=== PATIENT | female | born 1940 | race Caucasian/White ===

== ENCOUNTER 2024-05-22 11:56 | Observation (INO) | payer MEDICARE ==
--- NOTE | 2024-05-22 12:08 | ERPHSYRPT ---
- History of Present Illness Time Seen by Provider: 05/22/24 12:07 Source: patient Exam Limitations: no limitations Physician History: The patient, with a history of cardiovascular disease and hypertension, presents with a three-day history of shortness of breath and weakness, particularly upon walking. They report feeling as though they might "hit the floor." This follows a recent COVID-19 infection approximately three weeks prior. In September, the patient underwent a cardiac procedure at [facility] in [place], where "clamps" were placed in the back of their heart due to an issue with the heart's opening and closing mechanism. The procedure, initially estimat ed to last an hour, extended to six and a half hours. Since then, the patient has not required hospitalization and denies any swelling. Daughter reports the procedure was mitral valve clipping. The patient also has a stent in the main artery of their neck. They occasionally experience chest pain and heart palpitations, described as the heart "skipping" and feeling like it's about to stop. Recently, they were diagnosed with atrial fibrillation (afib) and were prescribed Eliquis once daily. In addition to their cardiovascular conditions, the patient has a history of hypertension and high cholesterol, for which they have been taking medication for several months. They deny having diabetes. The patient also reports a sensation of weakness in their legs upon standing from a seated position. Timing/Duration: day(s) (3) Activities at Onset: activity Severity of Dyspnea-Max: severe Severity of Dyspnea-Current: severe Possible Cause: occasional episodes Modifying Factors: Improves With: rest. Worsens With: activity, exertion Associated Symptoms: intermittent, anxiety, cough, lightheadedness, weakness, dizziness, heart racing, No chest pain/discomfort, No edema, No wheezing, No ankle swelling, No calf pain, No leg swelling Allergies/Adverse Reactions: No Known Drug Allergies Allergy (Unverified 05/22/24 12:14) Home Medications: Unobtainable 05/22/24 [History] - Review of Systems All Other Systems: Reviewed and Negative - Past Medical History Neurological History: No Pertinent History ENT History: No Pertinent History Cardiac History: Coronary Artery Disease, High Cholesterol, Hypertension Respiratory History: No Pertinent History Endocrine Medical History: No Pertinent History Musculoskeletal History: Arthritis GI Medical History: No Pertinent History History: No Pertinent History Psycho-Social History: Anxiety Female Reproductive Disorders: No Pertinent History - Past Surgical History Past Surgical History: Yes Cardiac: Cardiac Catheterization, Cardiac Stent, Vascular Surgery, Other Gastrointestinal: Appendectomy, Cholecystectomy Female Surgical History: Hysterectomy Other Surgical History: valve clips - Nursing Vital Signs Nursing Vital Signs: Initial Vital Signs Pulse Rate 71 05/22/24 12:03 Respiratory Rate 22 05/22/24 12:03 Blood Pressure 138/79 05/22/24 12:03 O2 Sat by Pulse Oximetry 100 05/22/24 12:03 Pain Scale Pain Intensity 0 - Physical Exam General Appearance: moderate distress, anxiety, thin Eye Exam: eyes nml inspection Ears, Nose, Throat Exam: hearing grossly normal, normal ENT inspection Neck Exam: normal inspection, supple, full range of motion Respiratory Exam: normal breath sounds, lungs clear, airway intact, No chest tenderness, No respiratory distress Cardiovascular/Chest Exam: regular rate/rhythm, murmur (4/6 systolic murmur left sternal border), normal peripheral pulses, No edema Abdominal/Gastrointestinal Exam: soft, No tenderness, No distention, No mass, No guarding, No rebound Extremity Exam: No swelling, No cody's sign Neurologic Exam: alert, oriented x 3, cooperative Skin Exam: normal color, warm, dry SpO2 Interpretation: normal O2 Delivery: Room Air - Course Nursing assessment & vital signs reviewed: Yes EKG Interpreted by Me: RATE (74), Sinus Rhythm, NORMAL AXIS, NORMAL INTERVALS, NORMAL ST-T, Other (RSR prime V4, V5, V6) - CT Exams Chest CT Interpretation: Negative, Tele-radiologist Report, No PE Ordered Tests: Active Orders 24 hr Category Date Time Status Call Admit Doctor for Orders ON ADMISSION Care 05/22/24 16:53 Active Aircraft De Icer Installer STAT Care 05/22/24 12:14 Active Code Status Order ROUTINE Care 05/22/24 16:53 Active EKG-ER Only STAT Care 05/22/24 12:12 Active IV Insertion STAT Care 05/22/24 12:[address] in Observation ROUTINE Care 05/22/24 16:53 Active Telemetry q6h Care 05/22/24 16:54 Active CHEST WITH CONTRAST [CT] Stat Exams 05/22/24 13:14 Completed ECHO W/2D AND DOPPLER [US] Stat Exams 05/22/24 12:18 Taken BLOOD CULTURE Stat Lab 05/22/24 12:56 Received CBC W DIFF Stat Lab 05/22/24 12:22 Completed CMP Stat Lab 05/22/24 12:22 Completed D-DIMER QUANTITATIVE Stat Lab 05/22/24 12:22 Completed Lactic Acid Stat Lab 05/22/24 12:25 Completed MAGNESIUM Stat Lab 05/22/24 12:22 Completed NT PRO BNPII Stat Lab 05/22/24 12:22 Completed PROTIME WITH INR Stat Lab 05/22/24 12:22 Completed PTT Stat Lab 05/22/24 12:22 Completed TROPONIN Q4H Lab 05/22/24 12:22 Completed TROPONIN Q4H Lab 05/22/24 16:15 Completed TROPONIN Q4H Lab 05/22/24 20:15 Ordered UA W/RFX UR CULTURE Stat Lab 05/22/24 13:30 Completed VENOUS BLOOD GAS Stat Lab 05/22/24 12:25 Completed Medication Summary Discontinued Medications Generic Name Dose Route Start Last Admin Trade Name Freq PRN Reason Stop Dose Admin Ceftriaxone Sodium 1 gm in 100 mls @ 200 mls/hr 05/22/24 12:12 05/22/24 13:06 Rocephin 1 Gm / 100 Ml Nacl IV 05/22/24 12:41 Infused STAT ONE Infusion Azithromycin 500 mg in 250 mls @ 250 mls/hr 05/22/24 12:12 05/22/24 15:19 Zithromax 500 Mg/ 250 Ml Nacl Premix IV 05/22/24 13:11 Infused STAT STA Infusion Ceftriaxone Sodium Confirm 05/22/24 12:26 Rocephin 1 Gm / 100 Ml Nacl Administered 05/22/24 12:27 Dose 1 gm in 100 mls @ ud IV .STK-MED ONE Azithromycin Confirm 05/22/24 14:10 Zithromax 500 Mg/ 250 Ml Nacl Premix Administered 05/22/24 14:11 Dose 500 mg in 250 mls @ ud IV .STK-MED ONE Lab/Rad Data: Laboratory Result Diagrams 05/22/24 12:22 05/22/24 12:22 Laboratory Results 05/22/24 05/22/24 05/22/24 Range/Units 16:15 13:30 13:00 WBC (3.98-10.04) x10^3/uL RBC (3.93-5.22) x10^6/uL Hgb (11.2-15.7) g/dL Hct (34.1-44.9) % MCV (79.4-94.8) fL MCH (25.6-32.2) pg MCHC (32.2-35.5) g/dL RDW (11.7-14.4) % Plt Count (182-369) x10^3/uL MPV (9.4-12.3) fL Gran % (34.0-71.1) % Immature Gran % (Auto) (0.001-0.429) % Nucleat RBC Rel Count (0.00-0.2) % Eos # (Auto) (0.04-0.36) x10^3/uL Immature Gran # (Auto) (0.001-0.031) x10^3u/L Absolute Lymphs (auto) (1.18-3.74) x10^3/uL Absolute Monos (auto) (0.24-0.86) x10^3/uL Absolute Nucleated RBC (0.00-0.012) x10^3u/L Lymphocytes % (19.3-51.7) % Monocytes % (4.7-12.5) % Eosinophils % (0.7-5.8) % Basophils % (0.1-1.2) % Absolute Granulocytes (1.56-6.13) x10^3/uL Basophils # (0.01-0.08) x10^3/uL PT (9.4-12.5) SECONDS INR (0.8-3.0) APTT (25.1-36.5) SECONDS D-Dimer (0.0-0.50) mg/L pO2/FiO2 Ratio % VBG pH (7.32-7.42) VBG pCO2 at Pat Temp (42-55) mm/Hg VBG pO2 at Pat Temp (25-40) mm/Hg VBG HCO3 (22-28) meq/L VBG O2 Sat (Dev) (95-100) VBG Base Excess (-2.0-2.0) VBG Hemoglobin VBG Carboxyhemoglobin (0.0-6.9) % T HGB POC Potassium (3.5-5.1) Sodium (135-145) mmol/L Potassium (3.5-5.1) mmol/L Chloride (98-107) mmol/L Carbon Dioxide (22-30) mmol/L Anion Gap (5-15) MEQ/L BUN (7-17) mg/dL Creatinine (0.52-1.04) mg/dL Estimated GFR ML/MIN Glucose (74-106) mg/dL Lactic Acid (0.4-2.0) Calcium (8.4-10.2) mg/dL Magnesium (1.6-2.3) mg/dL Total Bilirubin (0.2-1.3) mg/dL AST (14-36) U/L ALT (0-35) U/L Alkaline Phosphatase (38-126) U/L Troponin I < 0.012 (0.000-0.033) ng/mL NT-Pro-B Natriuret Pep (<300) pg/mL Serum Total Protein (6.3-8.2) g/dL Albumin (3.5-5.0) g/dL Urine Color Yellow (Yellow) Urine Appearance Clear (Clear) Urine pH 7.5 (4.6-8.0) Ur Specific [place] 1.015 (1.005-1.030) Urine Protein Negative (Negative) Urine Glucose (UA) Negative (Negative) mg/dL Urine Ketones Negative (Negative) Urine Blood Small A (Negative) Urine Nitrite Negative (Negative) Urine Bilirubin Negative (Negative) Urine Urobilinogen 2.0 A (0.2) mg/dL Ur Leukocyte Esterase Large A (Negative) U Hyaline Cast (Auto) NONE SEEN (0-2) /LPF Urine Microscopic RBC 6-10 A (0-5) /HPF Urine Microscopic WBC 6-10 A (0-5) /HPF Ur Epithelial Cells Rare (None Seen) /HPF Urine Bacteria Rare A (None Seen) /HPF Urine Culture Reflexed NO (NO) Influenza Type A Ag NEGATIVE (NEGATIVE) Influenza Type B Ag NEGATIVE (NEGATIVE) RSV (PCR) NEGATIVE (NEGATIVE) SARS-CoV-2 (PCR) POSITIVE A (NEGATIVE) 05/22/24 05/22/24 05/22/24 Range/Units 12:25 12:25 12:22 WBC (3.98-10.04) x10^3/uL RBC (3.93-5.22) x10^6/uL Hgb (11.2-15.7) g/dL Hct (34.1-44.9) % MCV (79.4-94.8) fL MCH (25.6-32.2) pg MCHC (32.2-35.5) g/dL RDW (11.7-14.4) % Plt Count (182-369) x10^3/uL MPV (9.4-12.3) fL Gran % (34.0-71.1) % Immature Gran % (Auto) (0.001-0.429) % Nucleat RBC Rel Count (0.00-0.2) % Eos # (Auto) (0.04-0.36) x10^3/uL Immature Gran # (Auto) (0.001-0.031) x10^3u/L Absolute Lymphs (auto) (1.18-3.74) x10^3/uL Absolute Monos (auto) (0.24-0.86) x10^3/uL Absolute Nucleated RBC (0.00-0.012) x10^3u/L Lymphocytes % (19.3-51.7) % Monocytes % (4.7-12.5) % Eosinophils % (0.7-5.8) % Basophils % (0.1-1.2) % Absolute Granulocytes (1.56-6.13) x10^3/uL Basophils # (0.01-0.08) x10^3/uL PT (9.4-12.5) SECONDS INR (0.8-3.0) APTT (25.1-36.5) SECONDS D-Dimer (0.0-0.50) mg/L pO2/FiO2 Ratio 21.0 % VBG pH 7.47 H (7.32-7.42) VBG pCO2 at Pat Temp 32 L (42-55) mm/Hg VBG pO2 at Pat Temp 34 (25-40) mm/Hg VBG HCO3 23.3 (22-28) meq/L VBG O2 Sat (Dev) 65.3 L (95-100) VBG Base Excess 0.3 (-2.0-2.0) VBG Hemoglobin 13.5 VBG Carboxyhemoglobin 2.6 (0.0-6.9) % T HGB POC Potassium 3.7 (3.5-5.1) Sodium (135-145) mmol/L Potassium (3.5-5.1) mmol/L Chloride (98-107) mmol/L Carbon Dioxide (22-30) mmol/L Anion Gap (5-15) MEQ/L BUN (7-17) mg/dL Creatinine (0.52-1.04) mg/dL Estimated GFR ML/MIN Glucose (74-106) mg/dL Lactic Acid 1.1 (0.4-2.0) Calcium (8.4-10.2) mg/dL Magnesium (1.6-2.3) mg/dL Total Bilirubin (0.2-1.3) mg/dL AST (14-36) U/L ALT (0-35) U/L Alkaline Phosphatase (38-126) U/L Troponin I < 0.012 (0.000-0.033) ng/mL NT-Pro-B Natriuret Pep (<300) pg/mL Serum Total Protein (6.3-8.2) g/dL Albumin (3.5-5.0) g/dL Urine Color (Yellow) Urine Appearance (Clear) Urine pH (4.6-8.0) Ur Specific [place] (1.005-1.030) Urine Protein (Negative) Urine Glucose (UA) (Negative) mg/dL Urine Ketones (Negative) Urine Blood (Negative) Urine Nitrite (Negative) Urine Bilirubin (Negative) Urine Urobilinogen (0.2) mg/dL Ur Leukocyte Esterase (Negative) U Hyaline Cast (Auto) (0-2) /LPF Urine Microscopic RBC (0-5) /HPF Urine Microscopic WBC (0-5) /HPF Ur Epithelial Cells (None Seen) /HPF Urine Bacteria (None Seen) /HPF Urine Culture Reflexed (NO) Influenza Type A Ag (NEGATIVE) Influenza Type B Ag (NEGATIVE) RSV (PCR) (NEGATIVE) SARS-CoV-2 (PCR) (NEGATIVE) 05/22/24 05/22/24 05/22/24 Range/Units 12:22 12:22 12:22 WBC 7.6 (3.98-10.04) x10^3/uL RBC 4.36 (3.93-5.22) x10^6/uL Hgb 13.2 (11.2-15.7) g/dL Hct 38.8 (34.1-44.9) % MCV 89.0 (79.4-94.8) fL MCH 30.3 (25.6-32.2) pg MCHC 34.0 (32.2-35.5) g/dL RDW 12.7 (11.7-14.4) % Plt Count 267 (182-369) x10^3/uL MPV 10.2 (9.4-12.3) fL Gran % 45.2 (34.0-71.1) % Immature Gran % (Auto) 0.3 (0.001-0.429) % Nucleat RBC Rel Count 0.0 (0.00-0.2) % Eos # (Auto) 0.22 (0.04-0.36) x10^3/uL Immature Gran # (Auto) 0.02 (0.001-0.031) x10^3u/L Absolute Lymphs (auto) 3.20 (1.18-3.74) x10^3/uL Absolute Monos (auto) 0.69 (0.24-0.86) x10^3/uL Absolute Nucleated RBC 0.00 (0.00-0.012) x10^3u/L Lymphocytes % 41.9 (19.3-51.7) % Monocytes % 9.0 (4.7-12.5) % Eosinophils % 2.9 (0.7-5.8) % Basophils % 0.7 (0.1-1.2) % Absolute Granulocytes 3.45 (1.56-6.13) x10^3/uL Basophils # 0.05 (0.01-0.08) x10^3/uL PT 10.5 (9.4-12.5) SECONDS INR 0.96 (0.8-3.0) APTT 26.6 (25.1-36.5) SECONDS D-Dimer 0.65 H* (0.0-0.50) mg/L pO2/FiO2 Ratio % VBG pH (7.32-7.42) VBG pCO2 at Pat Temp (42-55) mm/Hg VBG pO2 at Pat Temp (25-40) mm/Hg VBG HCO3 (22-28) meq/L VBG O2 Sat (Dev) (95-100) VBG Base Excess (-2.0-2.0) VBG Hemoglobin VBG Carboxyhemoglobin (0.0-6.9) % T HGB POC Potassium (3.5-5.1) Sodium 138 (135-145) mmol/L Potassium 3.8 (3.5-5.1) mmol/L Chloride 107 (98-107) mmol/L Carbon Dioxide 22 (22-30) mmol/L Anion Gap 13.6 (5-15) MEQ/L BUN 12 (7-17) mg/dL Creatinine 0.84 (0.52-1.04) mg/dL Estimated GFR 68.9 ML/MIN Glucose 102 (74-106) mg/dL Lactic Acid (0.4-2.0) Calcium 8.9 (8.4-10.2) mg/dL Magnesium 2.0 (1.6-2.3) mg/dL Total Bilirubin 0.80 (0.2-1.3) mg/dL AST 29 (14-36) U/L ALT 17 (0-35) U/L Alkaline Phosphatase 143 H (38-126) U/L Troponin I (0.000-0.033) ng/mL NT-Pro-B Natriuret Pep 1140 (<300) pg/mL Serum Total Protein 6.3 (6.3-8.2) g/dL Albumin 3.9 (3.5-5.0) g/dL Urine Color (Yellow) Urine Appearance (Clear) Urine pH (4.6-8.0) Ur Specific [place] (1.005-1.030) Urine Protein (Negative) Urine Glucose (UA) (Negative) mg/dL Urine Ketones (Negative) Urine Blood (Negative) Urine Nitrite (Negative) Urine Bilirubin (Negative) Urine Urobilinogen (0.2) mg/dL Ur Leukocyte Esterase (Negative) U Hyaline Cast (Auto) (0-2) /LPF Urine Microscopic RBC (0-5) /HPF Urine Microscopic WBC (0-5) /HPF Ur Epithelial Cells (None Seen) /HPF Urine Bacteria (None Seen) /HPF Urine Culture Reflexed (NO) Influenza Type A Ag (NEGATIVE) Influenza Type B Ag (NEGATIVE) RSV (PCR) (NEGATIVE) SARS-CoV-2 (PCR) (NEGATIVE) - Progress Progress: improved Air Movement: good Progress Note: CBC and CMP within normal limits. Troponin negative x 2. BNP 1140. D-dimer elevated at 0.65. CTA chest was obtained and negative for PE or any signs of pneumonia. UA showed small amounts of blood, large leukocyte Estrace, 6-10 red blood cells, 6-10 white blood cells and rare bacteria. Patient was empirically treated on arrival with Rocephin and azithromycin for possible superimposed bacterial pneumonia. Echocardiogram was performed due to her history of mitral valve clipping and exertional shortness of breath. Dr. Silva called to discuss the findings and stated that her EF was 45 to 50% mitral stenosis and a floppy structure on the mitral valve. He recommended workup for infective endocarditis, white blood cell count normal today, blood cultures were obtained prior prior to antibiotics. If blood cultures return abnormal we will transfer to [facility] for [facility], but he felt that it was acceptable for her to remain here for observation at this time. I then discussed admission with who accepted at [id number]. Blood Culture(s) Obtained: Yes Antibiotics given: Yes Discussed with Dr.: Other (keyur) Will see patient in: hospital (observation) Counseled pt/family regarding: lab results, diagnosis, need for follow-up, rad results Medical Desision Making - Discussion of managment Care discussed with:: specialist Reviewed:: Test results Agreed on:: Treatment plan - Diagnostic Testing Diagnostic test were ordered, analyzed, and reviewed by me: Yes Radiological Interpretation: Interpreted by me, Reviewed by me, Teleradiologist Report - Risk of complications The pt has a mod risk of morbidity or mortality based on: Need for prescription drug management The pt has a high risk of morbidity or mortality based on: Decision regarding hospitilization or escalation of hosp level of care - Departure Departure Disposition: Observation Clinical Impression: SOB (shortness of breath), Elevated brain natriuretic peptide (BNP) level, Status post implantation of mitral valve leaflet clip, Mitral stenosis Condition: Stable Critical Care Time: No Referrals: CELESTE GAMA [CONSULTING PHYSICIAN] - Follow up/PCP as directed Instructions: Shortness of Breath (Dyspnea) (DC)
[2024-05-22] MEDS ORDERED: ROCEPHIN 1 GM / 100 ML NaCl 1 GM/100 ML IVPB IV ONE (12:26)
[2024-05-22 12:28] LABS: VBG BASE EXCESS 0.3 (-2.0-2.0); VBG CARBOXYHEMOGLOBIN 2.6 % T HGB (0.0-6.9); VBG HCO3- 23.3 meq/L (22-28); VBG HEMOGLOBIN 13.5; VBG O2 SATURATION 65.3 (95-100); VBG POTASSIUM 3.7 (3.5-5.1); VBG pH 7.47 (7.32-7.42)
[2024-05-22] MEDS: ROCEPHIN 1 GM / 100 ML NaCl 1 GM/100 ML IVPB IV ONE (12:30)
[2024-05-22 12:34] LABS: Absolute Neutrophil Ct (ANC) 3.45 x10^3/uL (1.56-6.13); BASOPHIL % 0.7 % (0.1-1.2); Basophil (Absolute #) 0.05 x10^3/uL (0.01-0.08); Eosinophil % 2.9 % (0.7-5.8); Eosinophil (Absolute #) 0.22 x10^3/uL (0.04-0.36); Hematocrit 38.8 % (34.1-44.9); Hemoglobin 13.2 g/dL (11.2-15.7); IMMATURE GRAN # 0.02 x10^3u/L (0.001-0.031); IMMATURE GRAN % 0.3 % (0.001-0.429); Lymphocytes % 41.9 % (19.3-51.7); Mean Corpuscular Hemoglobin 30.3 pg (25.6-32.2); Mean Platelet Volume 10.2 fL (9.4-12.3); Monocyte (Absolute #) 0.69 x10^3/uL (0.24-0.86); Neutrophil % 45.2 % (34.0-71.1); Platelet Count 267 x10^3/uL (182-369); Red Blood Count 4.36 x10^6/uL (3.93-5.22); Red Cell Distribution Width 12.7 % (11.7-14.4); White Blood Count 7.6 x10^3/uL (3.98-10.04)
[2024-05-22 12:53] LABS: INR 0.96 (0.8-3.0); PROTIME 10.5 SECONDS (9.4-12.5); PTT 26.6 SECONDS (25.1-36.5)
[2024-05-22 12:56] LABS: ALBUMIN 3.9 g/dL (3.5-5.0); ANION GAP 13.6 MEQ/L (5-15); BILIRUBIN,TOTAL 0.8 mg/dL (0.2-1.3); Calcium 8.9 mg/dL (8.4-10.2); Creatinine 1 0.84 mg/dL (0.52-1.04); EST GLOMERULAR FILTRATION RATE 68.9 ML/MIN; Potassium 3.8 mmol/L (3.5-5.1); Total Protein 6.3 g/dL (6.3-8.2)
[2024-05-22 13:13] LABS: D-DIMER QUANTITATIVE 0.65 mg/L (0.0-0.50)
[2024-05-22 13:42] LABS: INFLUENZA A NEGATIVE (NEGATIVE); INFLUENZA B NEGATIVE (NEGATIVE); RESPIRATORY SYNCTIAL VIRUS NEGATIVE (NEGATIVE)
[2024-05-22 13:56] LABS: SARS-CoV-2 Xpert Express POSITIVE (NEGATIVE)
[2024-05-22 14:08] LABS: Appearance Clear (Clear); Bacteria Rare /HPF (None Seen); Bilirubin Negative (Negative); Blood Small (Negative); Epithelial Cells Rare /HPF (None Seen); Glucose, Urine Negative (Negative); Hyaline Casts NONE SEEN /LPF (0-2); Ketones Negative (Negative); Leukocyte Esterase Large (Negative); Nitrite Negative (Negative); Ph 7.5 (4.6-8.0); Protein,Urine Dip Negative (Negative); Specific Gravity 1.015 (1.005-1.030)
[2024-05-22] MEDS ORDERED: Zithromax 500 MG/ 250 ML NaCl Premix 500 MG/250 ML IVPB IV ONE (14:10)
[2024-05-22 14:11] LABS: ADD URINE CULTURE? NO (NO)
[2024-05-22] MEDS: Zithromax 500 MG/ 250 ML NaCl Premix 500 MG/250 ML IVPB IV STA (14:17)
--- NOTE | 2024-05-22 16:36 | XRAY ---
Indication: Short of breath. Elevated d-dimer. Positive Covid 19 one week ago. Multiple contiguous axial images obtained through the chest using 80 cc Isovue 370 contrast and PE protocol. Comparison: None Good opacification of the pulmonary arteries to include the lobar and segmental branches. No pulmonary embolus. Heart not enlarged with incidental mitral valve clips and coronary stent. Aorta demonstrates minimal scattered calcifications without aneurysm/dissection. No pathologic mediastinal/hilar lymphadenopathy. Lungs demonstrates minimal bibasilar subsegmental atelectasis/scarring. No suspicious pulmonary mass/nodule, infiltrate, or effusion. Bony thorax intact with osteopenia and minimal degenerative changes throughout the spine. Limited upper abdomen demonstrates fatty liver, cholecystomy clips, and periaortic surgical clips. Impression: 1. Negative pulmonary embolus. No acute cardiopulmonary abnormalities. 2. Chronic findings including arteriosclerotic disease, chronic bony findings, fatty liver, and postsurgical changes.
--- NOTE | 2024-05-22 17:54 | PCM.HP ---
History of Present Illness - Chief Complaint Chief Complaint: sob Date: 05/22/24 History of Present Illness: is a 84 year old female with pmhx of history of cardiovascular disease and hypertension. She presented to ER today with a three-day history of shortness of breath and weakness, particularly upon walking. She reports feeling as though she might "hit the floor." This follows a recent COVID-19 infection approximately three weeks prior. COVID test + in ER. She appears to have a UTI per labs, will continue ceftriaxone. Echo done in ER and ER physican reviewed with cardiology at [facility]. After further review cardiology wanted blood cultures drawn and if no growth can d/c as she had a recent procedure on her mitral valve. D-Dimer 0.63 and CTA negative for PE. She denies CP, abd. pain, N/V/D. - Review of Systems Constitutional: Weakness, No Fever, No Chills Eyes: No Symptoms Ears, Nose, & Throat: No Symptoms Respiratory: Short Of Breath, No Cough Cardiac: No Chest Pain, No Edema, No Syncope Abdominal/Gastrointestinal: No Abdominal Pain, No Nausea, No Vomiting, No Diarrhea Genitourinary Symptoms: No Dysuria Musculoskeletal: No Back Pain, No Neck Pain Skin: No Rash Neurological: No Dizziness, No Focal Weakness, No Sensory Changes Psychological: No Symptoms Endocrine: No Symptoms Hematologic/Lymphatic: No Symptoms Immunological/Allergic: No Symptoms Medications & Allergies Home Medications: Home Medication List Unobtainable 05/22/24 [History Confirmed 05/22/24] Allergies/Adverse Reactions: Allergies Allergy/AdvReac Type Severity Reaction Status Date / Time No Known Drug Allergies Allergy Verified 05/22/24 17:56 - Past Medical History Neurological History: No Pertinent History ENT History: No Pertinent History Cardiac History: Coronary Artery Disease, High Cholesterol, Hypertension Respiratory History: No Pertinent History Endocrine Medical History: No Pertinent History Musculoskelatal History: Arthritis GI Medical History: No Pertinent History History: No Pertinent History Pyscho-Social History: Anxiety Reproductive Disorders: No Pertinent History - Past Surgical History Past Surgical History: Yes Cardiac History: Cardiac Catheterization, Cardiac Stent, Vascular Surgery, Other GI Surgical History: Appendectomy, Cholecystectomy Female Surgical History: Hysterectomy Other Surgical History: valve clips - Social History Smoking Status: Never smoker Exposure to second hand smoke: No Alcohol: None Drug Use: none - Social Determinants of Health Will the patient participate in the screening: Declined to provide - Physical Exam Vital Signs: Vital Signs - 24 hr Temp Pulse Resp BP BP Pulse Ox 05/22/24 15:00 163/80 05/22/24 14:30 95 H 19 136/68 05/22/24 14:01 73 14 130/79 100 05/22/24 13:31 76 17 143/64 100 05/22/24 13:30 76 19 100 05/22/24 13:20 88 28 H 100 05/22/24 13:10 78 21 100 05/22/24 13:02 77 25 H 99 05/22/24 12:33 74 19 152/70 100 05/22/24 12:30 77 26 H 137/56 100 05/22/24 12:26 20 98 05/22/24 12:13 97.2 F 71 16 138/79 100 05/22/24 12:03 71 22 138/79 100 General Appearance: no apparent distress, alert Neurologic Exam: alert, oriented x 3, cooperative, normal mood/affect, nml cerebellar function, nml station & gait, sensation nml, No motor deficits Eye Exam: PERRL/EOMI, eyes nml inspection Ears, Nose, Throat Exam: normal ENT inspection, TMs normal, pharynx normal, moist mucous membranes Neck Exam: normal inspection, non-tender, supple, full range of motion Respiratory Exam: normal breath sounds, lungs clear, No respiratory distress Cardiovascular Exam: regular rate/rhythm, normal peripheral pulses, murmur Gastrointestinal/Abdomen Exam: soft, normal bowel sounds, No tenderness, No mass Back Exam: normal inspection, normal range of motion, No CVA tenderness, No vertebral tenderness Extremity Exam: normal inspection, normal range of motion, pelvis stable Skin Exam: normal color, warm, dry, No rash Lymphatic Exam: No adenopathy Results - Labs Lab/Micro Results: Lab Results-Last 24 Hours 05/22/24 05/22/24 05/22/24 Range/Units 12:22 12:22 12:22 WBC 7.6 (3.98-10.04) x10^3/uL RBC 4.36 (3.93-5.22) x10^6/uL Hgb 13.2 (11.2-15.7) g/dL Hct 38.8 (34.1-44.9) % MCV 89.0 (79.4-94.8) fL MCH 30.3 (25.6-32.2) pg MCHC 34.0 (32.2-35.5) g/dL RDW 12.7 (11.7-14.4) % Plt Count 267 (182-369) x10^3/uL MPV 10.2 (9.4-12.3) fL Gran % 45.2 (34.0-71.1) % Immature Gran % (Auto) 0.3 (0.001-0.429) % Nucleat RBC Rel Count 0.0 (0.00-0.2) % Eos # (Auto) 0.22 (0.04-0.36) x10^3/uL Immature Gran # (Auto) 0.02 (0.001-0.031) x10^3u/L Absolute Lymphs (auto) 3.20 (1.18-3.74) x10^3/uL Absolute Monos (auto) 0.69 (0.24-0.86) x10^3/uL Absolute Nucleated RBC 0.00 (0.00-0.012) x10^3u/L Lymphocytes % 41.9 (19.3-51.7) % Monocytes % 9.0 (4.7-12.5) % Eosinophils % 2.9 (0.7-5.8) % Basophils % 0.7 (0.1-1.2) % Absolute Granulocytes 3.45 (1.56-6.13) x10^3/uL Basophils # 0.05 (0.01-0.08) x10^3/uL PT 10.5 (9.4-12.5) SECONDS INR 0.96 (0.8-3.0) APTT 26.6 (25.1-36.5) SECONDS D-Dimer 0.65 H* (0.0-0.50) mg/L pO2/FiO2 Ratio % VBG pH (7.32-7.42) VBG pCO2 at Pat Temp (42-55) mm/Hg VBG pO2 at Pat Temp (25-40) mm/Hg VBG HCO3 (22-28) meq/L VBG O2 Sat (Dev) (95-100) VBG Base Excess (-2.0-2.0) VBG Hemoglobin VBG Carboxyhemoglobin (0.0-6.9) % T HGB POC Potassium (3.5-5.1) Sodium 138 (135-145) mmol/L Potassium 3.8 (3.5-5.1) mmol/L Chloride 107 (98-107) mmol/L Carbon Dioxide 22 (22-30) mmol/L Anion Gap 13.6 (5-15) MEQ/L BUN 12 (7-17) mg/dL Creatinine 0.84 (0.52-1.04) mg/dL Estimated GFR 68.9 ML/MIN Glucose 102 (74-106) mg/dL Lactic Acid (0.4-2.0) Calcium 8.9 (8.4-10.2) mg/dL Magnesium 2.0 (1.6-2.3) mg/dL Total Bilirubin 0.80 (0.2-1.3) mg/dL AST 29 (14-36) U/L ALT 17 (0-35) U/L Alkaline Phosphatase 143 H (38-126) U/L Troponin I (0.000-0.033) ng/mL NT-Pro-B Natriuret Pep 1140 (<300) pg/mL Serum Total Protein 6.3 (6.3-8.2) g/dL Albumin 3.9 (3.5-5.0) g/dL Urine Color (Yellow) Urine Appearance (Clear) Urine pH (4.6-8.0) Ur Specific Marshall (1.005-1.030) Urine Protein (Negative) Urine Glucose (UA) (Negative) mg/dL Urine Ketones (Negative) Urine Blood (Negative) Urine Nitrite (Negative) Urine Bilirubin (Negative) Urine Urobilinogen (0.2) mg/dL Ur Leukocyte Esterase (Negative) U Hyaline Cast (Auto) (0-2) /LPF Urine Microscopic RBC (0-5) /HPF Urine Microscopic WBC (0-5) /HPF Ur Epithelial Cells (None Seen) /HPF Urine Bacteria (None Seen) /HPF Urine Culture Reflexed (NO) Influenza Type A Ag (NEGATIVE) Influenza Type B Ag (NEGATIVE) RSV (PCR) (NEGATIVE) SARS-CoV-2 (PCR) (NEGATIVE) 05/22/24 05/22/24 05/22/24 Range/Units 12:22 12:25 12:25 WBC (3.98-10.04) x10^3/uL RBC (3.93-5.22) x10^6/uL Hgb (11.2-15.7) g/dL Hct (34.1-44.9) % MCV (79.4-94.8) fL MCH (25.6-32.2) pg MCHC (32.2-35.5) g/dL RDW (11.7-14.4) % Plt Count (182-369) x10^3/uL MPV (9.4-12.3) fL Gran % (34.0-71.1) % Immature Gran % (Auto) (0.001-0.429) % Nucleat RBC Rel Count (0.00-0.2) % Eos # (Auto) (0.04-0.36) x10^3/uL Immature Gran # (Auto) (0.001-0.031) x10^3u/L Absolute Lymphs (auto) (1.18-3.74) x10^3/uL Absolute Monos (auto) (0.24-0.86) x10^3/uL Absolute Nucleated RBC (0.00-0.012) x10^3u/L Lymphocytes % (19.3-51.7) % Monocytes % (4.7-12.5) % Eosinophils % (0.7-5.8) % Basophils % (0.1-1.2) % Absolute Granulocytes (1.56-6.13) x10^3/uL Basophils # (0.01-0.08) x10^3/uL PT (9.4-12.5) SECONDS INR (0.8-3.0) APTT (25.1-36.5) SECONDS D-Dimer (0.0-0.50) mg/L pO2/FiO2 Ratio 21.0 % VBG pH 7.47 H (7.32-7.42) VBG pCO2 at Pat Temp 32 L (42-55) mm/Hg VBG pO2 at Pat Temp 34 (25-40) mm/Hg VBG HCO3 23.3 (22-28) meq/L VBG O2 Sat (Dev) 65.3 L (95-100) VBG Base Excess 0.3 (-2.0-2.0) VBG Hemoglobin 13.5 VBG Carboxyhemoglobin 2.6 (0.0-6.9) % T HGB POC Potassium 3.7 (3.5-5.1) Sodium (135-145) mmol/L Potassium (3.5-5.1) mmol/L Chloride (98-107) mmol/L Carbon Dioxide (22-30) mmol/L Anion Gap (5-15) MEQ/L BUN (7-17) mg/dL Creatinine (0.52-1.04) mg/dL Estimated GFR ML/MIN Glucose (74-106) mg/dL Lactic Acid 1.1 (0.4-2.0) Calcium (8.4-10.2) mg/dL Magnesium (1.6-2.3) mg/dL Total Bilirubin (0.2-1.3) mg/dL AST (14-36) U/L ALT (0-35) U/L Alkaline Phosphatase (38-126) U/L Troponin I < 0.012 (0.000-0.033) ng/mL NT-Pro-B Natriuret Pep (<300) pg/mL Serum Total Protein (6.3-8.2) g/dL Albumin (3.5-5.0) g/dL Urine Color (Yellow) Urine Appearance (Clear) Urine pH (4.6-8.0) Ur Specific Marshall (1.005-1.030) Urine Protein (Negative) Urine Glucose (UA) (Negative) mg/dL Urine Ketones (Negative) Urine Blood (Negative) Urine Nitrite (Negative) Urine Bilirubin (Negative) Urine Urobilinogen (0.2) mg/dL Ur Leukocyte Esterase (Negative) U Hyaline Cast (Auto) (0-2) /LPF Urine Microscopic RBC (0-5) /HPF Urine Microscopic WBC (0-5) /HPF Ur Epithelial Cells (None Seen) /HPF Urine Bacteria (None Seen) /HPF Urine Culture Reflexed (NO) Influenza Type A Ag (NEGATIVE) Influenza Type B Ag (NEGATIVE) RSV (PCR) (NEGATIVE) SARS-CoV-2 (PCR) (NEGATIVE) 05/22/24 05/22/24 05/22/24 Range/Units 13:00 13:30 16:15 WBC (3.98-10.04) x10^3/uL RBC (3.93-5.22) x10^6/uL Hgb (11.2-15.7) g/dL Hct (34.1-44.9) % MCV (79.4-94.8) fL MCH (25.6-32.2) pg MCHC (32.2-35.5) g/dL RDW (11.7-14.4) % Plt Count (182-369) x10^3/uL MPV (9.4-12.3) fL Gran % (34.0-71.1) % Immature Gran % (Auto) (0.001-0.429) % Nucleat RBC Rel Count (0.00-0.2) % Eos # (Auto) (0.04-0.36) x10^3/uL Immature Gran # (Auto) (0.001-0.031) x10^3u/L Absolute Lymphs (auto) (1.18-3.74) x10^3/uL Absolute Monos (auto) (0.24-0.86) x10^3/uL Absolute Nucleated RBC (0.00-0.012) x10^3u/L Lymphocytes % (19.3-51.7) % Monocytes % (4.7-12.5) % Eosinophils % (0.7-5.8) % Basophils % (0.1-1.2) % Absolute Granulocytes (1.56-6.13) x10^3/uL Basophils # (0.01-0.08) x10^3/uL PT (9.4-12.5) SECONDS INR (0.8-3.0) APTT (25.1-36.5) SECONDS D-Dimer (0.0-0.50) mg/L pO2/FiO2 Ratio % VBG pH (7.32-7.42) VBG pCO2 at Pat Temp (42-55) mm/Hg VBG pO2 at Pat Temp (25-40) mm/Hg VBG HCO3 (22-28) meq/L VBG O2 Sat (Dev) (95-100) VBG Base Excess (-2.0-2.0) VBG Hemoglobin VBG Carboxyhemoglobin (0.0-6.9) % T HGB POC Potassium (3.5-5.1) Sodium (135-145) mmol/L Potassium (3.5-5.1) mmol/L Chloride (98-107) mmol/L Carbon Dioxide (22-30) mmol/L Anion Gap (5-15) MEQ/L BUN (7-17) mg/dL Creatinine (0.52-1.04) mg/dL Estimated GFR ML/MIN Glucose (74-106) mg/dL Lactic Acid (0.4-2.0) Calcium (8.4-10.2) mg/dL Magnesium (1.6-2.3) mg/dL Total Bilirubin (0.2-1.3) mg/dL AST (14-36) U/L ALT (0-35) U/L Alkaline Phosphatase (38-126) U/L Troponin I < 0.012 (0.000-0.033) ng/mL NT-Pro-B Natriuret Pep (<300) pg/mL Serum Total Protein (6.3-8.2) g/dL Albumin (3.5-5.0) g/dL Urine Color Yellow (Yellow) Urine Appearance Clear (Clear) Urine pH 7.5 (4.6-8.0) Ur Specific Marshall 1.015 (1.005-1.030) Urine Protein Negative (Negative) Urine Glucose (UA) Negative (Negative) mg/dL Urine Ketones Negative (Negative) Urine Blood Small A (Negative) Urine Nitrite Negative (Negative) Urine Bilirubin Negative (Negative) Urine Urobilinogen 2.0 A (0.2) mg/dL Ur Leukocyte Esterase Large A (Negative) U Hyaline Cast (Auto) NONE SEEN (0-2) /LPF Urine Microscopic RBC 6-10 A (0-5) /HPF Urine Microscopic WBC 6-10 A (0-5) /HPF Ur Epithelial Cells Rare (None Seen) /HPF Urine Bacteria Rare A (None Seen) /HPF Urine Culture Reflexed NO (NO) Influenza Type A Ag NEGATIVE (NEGATIVE) Influenza Type B Ag NEGATIVE (NEGATIVE) RSV (PCR) NEGATIVE (NEGATIVE) SARS-CoV-2 (PCR) POSITIVE A (NEGATIVE) - Radiology Impressions Radiology Exams & Impressions: Radiology Procedures Category Date Time Status CHEST WITH CONTRAST [CT] Stat Exams 05/22/24 13:14 Completed ECHO W/2D AND DOPPLER [US] Stat Exams 05/22/24 12:18 Taken Assessment/Plan (1) UTI (urinary tract infection) Current Visit: Yes Status: Acute Assessment & Plan: - Continue ceftriaxone started in ER Code(s): N39.0 - URINARY TRACT INFECTION, SITE NOT SPECIFIED (2) COVID-19 Current Visit: Yes Status: Acute Assessment & Plan: - known infection, tested + 3 weeks ago Code(s): U07.1 - COVID-19 (3) D-dimer, elevated Current Visit: Yes Status: Acute Assessment & Plan: - D-Dimer 0.63- CT negative for PE - Likely 2:2 COVID Code(s): R79.89 - OTHER SPECIFIED ABNORMAL FINDINGS OF BLOOD CHEMISTRY (4) Mitral stenosis Current Visit: Yes Status: Acute Assessment & Plan: - Chronic hx with recent procedure - Echo reviewed per cardiology and abnormality seen. ER MD discussed with Dr. Silva and advised to keep IP until blood cultures back. If + may need transfer to higher level of care. Code(s): I05.0 - RHEUMATIC MITRAL STENOSIS (5) SOB (shortness of breath) Current Visit: Yes Status: Acute Assessment & Plan: - 2:2 COVID - Room air 100% Code(s): R06.02 - SHORTNESS OF BREATH (6) Status post implantation of mitral valve leaflet clip Current Visit: Yes Status: Chronic Assessment & Plan: - Completed approx 3 weeks ago now. - echo reviewed by cardiology. VTE: Eliquis PPI: Gage Next of KIN: Daughter Bridget who works at [employer] Code status: D/C plan: when x2 back. Code(s): Z98.890 - OTHER SPECIFIED POSTPROCEDURAL STATES; Z95.818 - PRESENCE OF OTHER CARDIAC IMPLANTS AND GRAFTS
[2024-05-22] MEDS: NEURONTIN PO SCH (21:30)
[2024-05-22] MEDS: ZOCOR 20MG PO SCH (21:30)
[2024-05-22] MEDS: Ambien 10 MG PO SCH (21:30)
[2024-05-22] MEDS: ENTRESTO 49 MG-51 MG TABLET PO SCH (21:30)
[2024-05-22] MEDS: BRILINTA PO SCH (21:30)
[2024-05-22] MEDS: NON-FORMULARY ITEM (Sacubitril/Valsartan [Entresto 24 Mg-26 Mg Tablet] 1 EACH Tablet) PO SCH (21:36)
[2024-05-22] MEDS ORDERED: NON-FORMULARY ITEM (Atorvastatin Calcium 20 MG Tab) PO SCH (22:00)
[2024-05-23] MEDS ORDERED: Protonix 40MG Tablet PO PRN (07:22)
[2024-05-23 08:50] LABS: Hematocrit 37.6 % (34.1-44.9); Hemoglobin 12.6 g/dL (11.2-15.7); Mean Corpuscular Hemoglobin 30.5 pg (25.6-32.2); Mean Corpuscular Hgb Concent. 33.5 g/dL (32.2-35.5); Mean Platelet Volume 10.2 fL (9.4-12.3); Platelet Count 210 x10^3/uL (182-369); Red Blood Count 4.13 x10^6/uL (3.93-5.22); Red Cell Distribution Width 12.5 % (11.7-14.4); White Blood Count 5.3 x10^3/uL (3.98-10.04)
[2024-05-23 09:01] LABS: ALBUMIN 3.4 g/dL (3.5-5.0); ANION GAP 10.7 MEQ/L (5-15); BILIRUBIN,TOTAL 0.7 mg/dL (0.2-1.3); Creatinine 1 0.69 mg/dL (0.52-1.04); EST GLOMERULAR FILTRATION RATE 86.1 ML/MIN; Potassium 4.1 mmol/L (3.5-5.1); Total Protein 5.7 g/dL (6.3-8.2)
--- NOTE | 2024-05-23 10:12 | ECHO ---
ECHO REPORT DATE OF PROCEDURE: 05/22/24 PROCEDURE: Echocardiogram. REFERRING PHYSICIAN: Farshad Morales MD, and, family physician, Kevin Castro MD. REASON FOR EXAMINATION: Shortness of breath, history of mitral valve clips. DESCRIPTION OF FINDINGS: Patient underwent 2D echo, M-mode study, and color flow mapping which was technically difficult because of poor acoustic window; however, 2D images suggested mild concentric left ventricular hypertrophy with left ventricular wall thickness of 1.2 cm, normal LV size of 5.1 cm, and overall mild LV systolic dysfunction with a calculated ejection fraction between 45% to 50%. The left atrium appears to be at least moderately enlarged. The right atrium was normal in normal size. The right ventricle was normal in size. There was no evidence of any pericardial effusion. The aortic root size appears to be within normal limits. The mitral valve appears to be thickened. There was what appears to be 2 mitral clips noted. There was some floppy echogenic structure noted next to the clips at the LV side, most likely representing redundant chordae tendineae; however, possibility of infective endocarditis could not be ruled out completely. The aortic valve appears to be calcified with mild narrowing at the aortic valve leaflet. The tricuspid valve appears to be pliable and opening well. The pulmonic valve was not well visualized. Color Doppler flow mapping showed moderate mitral regurgitation, mild tricuspid regurgitation, and mild aortic insufficiency. Mitral valve clips appear to be also causing mild mitral stenosis which is usual and within the acceptable results. IMPRESSION: 1) MILD CONCENTRIC LEFT VENTRICULAR HYPERTROPHY. 2) MILD LV SYSTOLIC DYSFUNCTION. 3) MITRAL VALVE CLIPS NOTED ON THE MITRAL VALVE. 4) ECHOGENIC HEART SIZE NOTED. 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 6) MILD MITRAL STENOSIS DUE TO MITRAL CLIPS (WITH AN ACCEPTABLE RESULT). 7) MODERATE MITRAL REGURGITATION, MILD TRICUSPID REGURGITATION, AND MILD AORTIC INSUFFICIENCY. 8) CALCIFIC ATHEROSCLEROSIS WITH MOST LIKELY MILD AORTIC STENOSIS.
[2024-05-23] MEDS: ROCEPHIN 1 GM / 100 ML NaCl 1 GM/100 ML IVPB IV SCH (10:54)
[2024-05-23] MEDS: ECOTRIN 81 MG PO SCH (10:54)
[2024-05-23] MEDS: Toprol Xl 50 MG PO SCH (10:55)
[2024-05-23] MEDS: TYLENOL 325 MG PO PRN (11:23)
[2024-05-23] MEDS ORDERED: ANTIVERT 25 MG PO PRN (12:35)
--- NOTE | 2024-05-23 12:39 | PCM.NOTE ---
Date and Time: 05/23/24 1234 Subjective Assessment: 05/22/24 is a 84 year old female with pmhx of history of cardiovascular disease and hypertension. She presented to ER today with a three-day history of shortness of breath and weakness, particularly upon walking. She reports feeling as though she might "hit the floor." This follows a recent COVID-19 infection approximately three weeks prior. COVID test + in ER. She appears to have a UTI per labs, will continue ceftriaxone. Echo done in ER and ER physican reviewed with cardiology at [facility]. After further review cardiology wanted blood cultures drawn and if no growth can d/c as she had a recent procedure on her mitral valve. D-Dimer 0.63 and CTA negative for PE. She denies CP, abd. pain, N/V/D. 05/23/24 Pt resting in bed. She reports she is no longer SOB. She is RA 97%. She continues to have some dizziness with walking to the bathroom and intermittently when laying in bed. Meclizine added PRN.Will have Pt eval pt for home needs. BC x2 still pending. She is in isolation for COVID. Dizziness may be r/t this. She states she is worried but otherwise has no concerns. She denies Cp, SOB, abd. pain, N/V/D. - Review of Systems Constitutional: No Fever, No Chills Eyes: No Symptoms Ears, Nose, & Throat: No Symptoms Respiratory: No Cough, No Short Of Breath Cardiac: No Chest Pain, No Edema, No Syncope Abdominal/Gastrointestinal: No Abdominal Pain, No Nausea, No Vomiting, No Diarrhea Genitourinary Symptoms: No Dysuria Musculoskeletal: No Back Pain, No Neck Pain Skin: No Rash Neurological: Dizziness, No Focal Weakness, No Sensory Changes Psychological: No Symptoms, Anxiety Endocrine: No Symptoms Hematologic/Lymphatic: No Symptoms Immunological/Allergic: No Symptoms Objective Exam General Appearance: no apparent distress, alert Neurologic Exam: alert, oriented x 3, cooperative, normal mood/affect, nml cerebellar function, sensation nml, No motor deficits Skin Exam: normal color, warm, dry Eye Exam: PERRL, EOMI, eyes nml inspection Ears, Nose, Throat Exam: normal ENT inspection, pharynx normal, moist mucous membranes Neck Exam: normal inspection, non-tender, supple, full range of motion Respiratory Exam: normal breath sounds, lungs clear, No respiratory distress Cardiovascular Exam: regular rate/rhythm, normal heart sounds Gastrointestinal/Abdomen Exam: soft, No tenderness, No mass Extremity Exam: normal inspection, normal range of motion Back Exam: normal inspection, normal range of motion, No CVA tenderness, No vertebral tenderness Pelvic Exam: deferred Rectal Exam: deferred Objective Data Vital Signs: Vital Signs - 24 hr Temp Pulse Resp BP BP Pulse Ox 05/23/24 10:57 97.9 F 72 20 109/55 97 05/23/24 07:49 96.7 F 77 18 123/58 93 L 05/23/24 04:00 98.1 F 79 16 127/60 94 L 05/22/24 23:27 98.5 F 82 16 111/56 94 L 05/22/24 20:28 96.8 F 80 19 141/72 96 05/22/24 15:00 163/80 05/22/24 14:30 95 H 19 136/68 05/22/24 14:01 73 14 130/79 100 05/22/24 13:31 76 17 143/64 100 05/22/24 13:30 76 19 100 05/22/24 13:20 88 28 H 100 05/22/24 13:10 78 21 100 05/22/24 13:02 77 25 H 99 Pain Assessment - Last Documented Pain Intensity 7 Pain Scale Used 0-10 Pain Scale Intake and Output: Intake & Output 05/21/24 05/22/24 05/23/24 05/24/24 11:59 11:59 11:59 11:59 Intake Total 480 Output Total 500 Balance -20 Weight 54 kg Lab Results: Lab Results-Last 24 Hours 05/22/24 05/22/24 05/22/24 Range/Units 12:22 12:22 12:22 WBC 7.6 (3.98-10.04) x10^3/uL RBC 4.36 (3.93-5.22) x10^6/uL Hgb 13.2 (11.2-15.7) g/dL Hct 38.8 (34.1-44.9) % MCV 89.0 (79.4-94.8) fL MCH 30.3 (25.6-32.2) pg MCHC 34.0 (32.2-35.5) g/dL RDW 12.7 (11.7-14.4) % Plt Count 267 (182-369) x10^3/uL MPV 10.2 (9.4-12.3) fL Gran % 45.2 (34.0-71.1) % Immature Gran % (Auto) 0.3 (0.001-0.429) % Nucleat RBC Rel Count 0.0 (0.00-0.2) % Eos # (Auto) 0.22 (0.04-0.36) x10^3/uL Immature Gran # (Auto) 0.02 (0.001-0.031) x10^3u/L Absolute Lymphs (auto) 3.20 (1.18-3.74) x10^3/uL Absolute Monos (auto) 0.69 (0.24-0.86) x10^3/uL Absolute Nucleated RBC 0.00 (0.00-0.012) x10^3u/L Lymphocytes % 41.9 (19.3-51.7) % Monocytes % 9.0 (4.7-12.5) % Eosinophils % 2.9 (0.7-5.8) % Basophils % 0.7 (0.1-1.2) % Absolute Granulocytes 3.45 (1.56-6.13) x10^3/uL Basophils # 0.05 (0.01-0.08) x10^3/uL PT 10.5 (9.4-12.5) SECONDS INR 0.96 (0.8-3.0) APTT 26.6 (25.1-36.5) SECONDS D-Dimer 0.65 H* (0.0-0.50) mg/L Sodium 138 (135-145) mmol/L Potassium 3.8 (3.5-5.1) mmol/L Chloride 107 (98-107) mmol/L Carbon Dioxide 22 (22-30) mmol/L Anion Gap 13.6 (5-15) MEQ/L BUN 12 (7-17) mg/dL Creatinine 0.84 (0.52-1.04) mg/dL Estimated GFR 68.9 ML/MIN Glucose 102 (74-106) mg/dL Calcium 8.9 (8.4-10.2) mg/dL Magnesium 2.0 (1.6-2.3) mg/dL Total Bilirubin 0.80 (0.2-1.3) mg/dL AST 29 (14-36) U/L ALT 17 (0-35) U/L Alkaline Phosphatase 143 H (38-126) U/L Troponin I (0.000-0.033) ng/mL NT-Pro-B Natriuret Pep 1140 (<300) pg/mL Serum Total Protein 6.3 (6.3-8.2) g/dL Albumin 3.9 (3.5-5.0) g/dL Urine Color (Yellow) Urine Appearance (Clear) Urine pH (4.6-8.0) Ur Specific [place] (1.005-1.030) Urine Protein (Negative) Urine Glucose (UA) (Negative) mg/dL Urine Ketones (Negative) Urine Blood (Negative) Urine Nitrite (Negative) Urine Bilirubin (Negative) Urine Urobilinogen (0.2) mg/dL Ur Leukocyte Esterase (Negative) U Hyaline Cast (Auto) (0-2) /LPF Urine Microscopic RBC (0-5) /HPF Urine Microscopic WBC (0-5) /HPF Ur Epithelial Cells (None Seen) /HPF Urine Bacteria (None Seen) /HPF Urine Culture Reflexed (NO) Influenza Type A Ag (NEGATIVE) Influenza Type B Ag (NEGATIVE) RSV (PCR) (NEGATIVE) SARS-CoV-2 (PCR) (NEGATIVE) 05/22/24 05/22/24 05/22/24 Range/Units 12:22 13:00 13:30 WBC (3.98-10.04) x10^3/uL RBC (3.93-5.22) x10^6/uL Hgb (11.2-15.7) g/dL Hct (34.1-44.9) % MCV (79.4-94.8) fL MCH (25.6-32.2) pg MCHC (32.2-35.5) g/dL RDW (11.7-14.4) % Plt Count (182-369) x10^3/uL MPV (9.4-12.3) fL Gran % (34.0-71.1) % Immature Gran % (Auto) (0.001-0.429) % Nucleat RBC Rel Count (0.00-0.2) % Eos # (Auto) (0.04-0.36) x10^3/uL Immature Gran # (Auto) (0.001-0.031) x10^3u/L Absolute Lymphs (auto) (1.18-3.74) x10^3/uL Absolute Monos (auto) (0.24-0.86) x10^3/uL Absolute Nucleated RBC (0.00-0.012) x10^3u/L Lymphocytes % (19.3-51.7) % Monocytes % (4.7-12.5) % Eosinophils % (0.7-5.8) % Basophils % (0.1-1.2) % Absolute Granulocytes (1.56-6.13) x10^3/uL Basophils # (0.01-0.08) x10^3/uL PT (9.4-12.5) SECONDS INR (0.8-3.0) APTT (25.1-36.5) SECONDS D-Dimer (0.0-0.50) mg/L Sodium (135-145) mmol/L Potassium (3.5-5.1) mmol/L Chloride (98-107) mmol/L Carbon Dioxide (22-30) mmol/L Anion Gap (5-15) MEQ/L BUN (7-17) mg/dL Creatinine (0.52-1.04) mg/dL Estimated GFR ML/MIN Glucose (74-106) mg/dL Calcium (8.4-10.2) mg/dL Magnesium (1.6-2.3) mg/dL Total Bilirubin (0.2-1.3) mg/dL AST (14-36) U/L ALT (0-35) U/L Alkaline Phosphatase (38-126) U/L Troponin I < 0.012 (0.000-0.033) ng/mL NT-Pro-B Natriuret Pep (<300) pg/mL Serum Total Protein (6.3-8.2) g/dL Albumin (3.5-5.0) g/dL Urine Color Yellow (Yellow) Urine Appearance Clear (Clear) Urine pH 7.5 (4.6-8.0) Ur Specific [place] 1.015 (1.005-1.030) Urine Protein Negative (Negative) Urine Glucose (UA) Negative (Negative) mg/dL Urine Ketones Negative (Negative) Urine Blood Small A (Negative) Urine Nitrite Negative (Negative) Urine Bilirubin Negative (Negative) Urine Urobilinogen 2.0 A (0.2) mg/dL Ur Leukocyte Esterase Large A (Negative) U Hyaline Cast (Auto) NONE SEEN (0-2) /LPF Urine Microscopic RBC 6-10 A (0-5) /HPF Urine Microscopic WBC 6-10 A (0-5) /HPF Ur Epithelial Cells Rare (None Seen) /HPF Urine Bacteria Rare A (None Seen) /HPF Urine Culture Reflexed NO (NO) Influenza Type A Ag NEGATIVE (NEGATIVE) Influenza Type B Ag NEGATIVE (NEGATIVE) RSV (PCR) NEGATIVE (NEGATIVE) SARS-CoV-2 (PCR) POSITIVE A (NEGATIVE) 05/22/24 05/22/24 05/23/24 Range/Units 16:15 20:20 08:42 WBC 5.3 (3.98-10.04) x10^3/uL RBC 4.13 (3.93-5.22) x10^6/uL Hgb 12.6 (11.2-15.7) g/dL Hct 37.6 (34.1-44.9) % MCV 91.0 (79.4-94.8) fL MCH 30.5 (25.6-32.2) pg MCHC 33.5 (32.2-35.5) g/dL RDW 12.5 (11.7-14.4) % Plt Count 210 (182-369) x10^3/uL MPV 10.2 (9.4-12.3) fL Gran % (34.0-71.1) % Immature Gran % (Auto) (0.001-0.429) % Nucleat RBC Rel Count (0.00-0.2) % Eos # (Auto) (0.04-0.36) x10^3/uL Immature Gran # (Auto) (0.001-0.031) x10^3u/L Absolute Lymphs (auto) (1.18-3.74) x10^3/uL Absolute Monos (auto) (0.24-0.86) x10^3/uL Absolute Nucleated RBC (0.00-0.012) x10^3u/L Lymphocytes % (19.3-51.7) % Monocytes % (4.7-12.5) % Eosinophils % (0.7-5.8) % Basophils % (0.1-1.2) % Absolute Granulocytes (1.56-6.13) x10^3/uL Basophils # (0.01-0.08) x10^3/uL PT (9.4-12.5) SECONDS INR (0.8-3.0) APTT (25.1-36.5) SECONDS D-Dimer (0.0-0.50) mg/L Sodium (135-145) mmol/L Potassium (3.5-5.1) mmol/L Chloride (98-107) mmol/L Carbon Dioxide (22-30) mmol/L Anion Gap (5-15) MEQ/L BUN (7-17) mg/dL Creatinine (0.52-1.04) mg/dL Estimated GFR ML/MIN Glucose (74-106) mg/dL Calcium (8.4-10.2) mg/dL Magnesium (1.6-2.3) mg/dL Total Bilirubin (0.2-1.3) mg/dL AST (14-36) U/L ALT (0-35) U/L Alkaline Phosphatase (38-126) U/L Troponin I < 0.012 < 0.012 (0.000-0.033) ng/mL NT-Pro-B Natriuret Pep (<300) pg/mL Serum Total Protein (6.3-8.2) g/dL Albumin (3.5-5.0) g/dL Urine Color (Yellow) Urine Appearance (Clear) Urine pH (4.6-8.0) Ur Specific [place] (1.005-1.030) Urine Protein (Negative) Urine Glucose (UA) (Negative) mg/dL Urine Ketones (Negative) Urine Blood (Negative) Urine Nitrite (Negative) Urine Bilirubin (Negative) Urine Urobilinogen (0.2) mg/dL Ur Leukocyte Esterase (Negative) U Hyaline Cast (Auto) (0-2) /LPF Urine Microscopic RBC (0-5) /HPF Urine Microscopic WBC (0-5) /HPF Ur Epithelial Cells (None Seen) /HPF Urine Bacteria (None Seen) /HPF Urine Culture Reflexed (NO) Influenza Type A Ag (NEGATIVE) Influenza Type B Ag (NEGATIVE) RSV (PCR) (NEGATIVE) SARS-CoV-2 (PCR) (NEGATIVE) 05/23/24 Range/Units 08:42 WBC (3.98-10.04) x10^3/uL RBC (3.93-5.22) x10^6/uL Hgb (11.2-15.7) g/dL Hct (34.1-44.9) % MCV (79.4-94.8) fL MCH (25.6-32.2) pg MCHC (32.2-35.5) g/dL RDW (11.7-14.4) % Plt Count (182-369) x10^3/uL MPV (9.4-12.3) fL Gran % (34.0-71.1) % Immature Gran % (Auto) (0.001-0.429) % Nucleat RBC Rel Count (0.00-0.2) % Eos # (Auto) (0.04-0.36) x10^3/uL Immature Gran # (Auto) (0.001-0.031) x10^3u/L Absolute Lymphs (auto) (1.18-3.74) x10^3/uL Absolute Monos (auto) (0.24-0.86) x10^3/uL Absolute Nucleated RBC (0.00-0.012) x10^3u/L Lymphocytes % (19.3-51.7) % Monocytes % (4.7-12.5) % Eosinophils % (0.7-5.8) % Basophils % (0.1-1.2) % Absolute Granulocytes (1.56-6.13) x10^3/uL Basophils # (0.01-0.08) x10^3/uL PT (9.4-12.5) SECONDS INR (0.8-3.0) APTT (25.1-36.5) SECONDS D-Dimer (0.0-0.50) mg/L Sodium 138 (135-145) mmol/L Potassium 4.1 (3.5-5.1) mmol/L Chloride 109 H (98-107) mmol/L Carbon Dioxide 22 (22-30) mmol/L Anion Gap 10.7 (5-15) MEQ/L BUN 10 (7-17) mg/dL Creatinine 0.69 (0.52-1.04) mg/dL Estimated GFR 86.1 ML/MIN Glucose 95 (74-106) mg/dL Calcium 9.0 (8.4-10.2) mg/dL Magnesium (1.6-2.3) mg/dL Total Bilirubin 0.70 (0.2-1.3) mg/dL AST 27 (14-36) U/L ALT 16 (0-35) U/L Alkaline Phosphatase 112 (38-126) U/L Troponin I (0.000-0.033) ng/mL NT-Pro-B Natriuret Pep (<300) pg/mL Serum Total Protein 5.7 L (6.3-8.2) g/dL Albumin 3.4 L (3.5-5.0) g/dL Urine Color (Yellow) Urine Appearance (Clear) Urine pH (4.6-8.0) Ur Specific [place] (1.005-1.030) Urine Protein (Negative) Urine Glucose (UA) (Negative) mg/dL Urine Ketones (Negative) Urine Blood (Negative) Urine Nitrite (Negative) Urine Bilirubin (Negative) Urine Urobilinogen (0.2) mg/dL Ur Leukocyte Esterase (Negative) U Hyaline Cast (Auto) (0-2) /LPF Urine Microscopic RBC (0-5) /HPF Urine Microscopic WBC (0-5) /HPF Ur Epithelial Cells (None Seen) /HPF Urine Bacteria (None Seen) /HPF Urine Culture Reflexed (NO) Influenza Type A Ag (NEGATIVE) Influenza Type B Ag (NEGATIVE) RSV (PCR) (NEGATIVE) SARS-CoV-2 (PCR) (NEGATIVE) Radiology Exams: Radiology Procedures Category Date Time Status CHEST WITH CONTRAST [CT] Stat Exams 05/22/24 13:14 Completed ECHO W/2D AND DOPPLER [US] Stat Exams 05/22/24 12:18 Draft Assessment/Plan (1) UTI (urinary tract infection) Current Visit: Yes Status: Acute Code(s): N39.0 - URINARY TRACT INFECTION, SITE NOT SPECIFIED (2) COVID-19 Current Visit: Yes Status: Acute Code(s): U07.1 - COVID-19 (3) D-dimer, elevated Current Visit: Yes Status: Acute Code(s): R79.89 - OTHER SPECIFIED ABNORMAL FINDINGS OF BLOOD CHEMISTRY (4) Mitral stenosis Current Visit: Yes Status: Acute Code(s): I05.0 - RHEUMATIC MITRAL STENOSIS (5) SOB (shortness of breath) Current Visit: Yes Status: Acute Code(s): R06.02 - SHORTNESS OF BREATH (6) Status post implantation of mitral valve leaflet clip Current Visit: Yes Status: Chronic Assessment & Plan: (1) UTI (urinary tract infection) Current Visit: Yes Status: Acute Assessment & Plan: - Continue ceftriaxone started in ER - UC pending Code(s): N39.0 - URINARY TRACT INFECTION, SITE NOT SPECIFIED (2) COVID-19 Current Visit: Yes Status: Acute Assessment & Plan: - known infection, tested + 3 weeks ago - isolation Code(s): U07.1 - COVID-19 (3) D-dimer, elevated Current Visit: Yes Status: Acute Assessment & Plan: - D-Dimer 0.63- CT negative for PE - Likely 2:2 COVID Code(s): R79.89 - OTHER SPECIFIED ABNORMAL FINDINGS OF BLOOD CHEMISTRY (4) Mitral stenosis Current Visit: Yes Status: Acute Assessment & Plan: - Chronic hx with recent procedure - Echo reviewed per cardiology and abnormality seen. ER MD discussed with Dr. Silva and advised to keep IP until blood cultures back. If + may need transfer to higher level of care. - BC x2 pending Code(s): I05.0 - RHEUMATIC MITRAL STENOSIS (5) SOB (shortness of breath) Current Visit: Yes Status: Acute Assessment & Plan: - 2:2 COVID - Room air 100% 05/23 - resolved - CTA reviewed: Impression: 1. Negative pulmonary embolus. No acute cardiopulmonary abnormalities. 2. Chronic findings including arteriosclerotic disease, chronic bony findings, fatty liver, and postsurgical changes. (6) Status post implantation of mitral valve leaflet clip Current Visit: Yes Status: Chronic Assessment & Plan: - Completed approx 3 weeks ago now. - BC x2 pending - Consider tx for EEG and ID if BC X2 + - echo reviewed by cardiology. EF 45-50% IMPRESSION: 1) MILD CONCENTRIC LEFT VENTRICULAR HYPERTROPHY. 2) MILD LV SYSTOLIC DYSFUNCTION. 3) MITRAL VALVE CLIPS NOTED ON THE MITRAL VALVE. 4) ECHOGENIC HEART SIZE NOTED. 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 6) MILD MITRAL STENOSIS DUE TO MITRAL CLIPS (WITH AN ACCEPTABLE RESULT). 7) MODERATE MITRAL REGURGITATION, MILD TRICUSPID REGURGITATION, AND MILD AORTIC INSUFFICIENCY. 8) CALCIFIC ATHEROSCLEROSIS WITH MOST LIKELY MILD AORTIC STENOSIS. Code(s): Z98.890 - OTHER SPECIFIED POSTPROCEDURAL STATES; Z95.818 - PRESENCE OF OTHER CARDIAC IMPLANTS AND GRAFTS Code(s): R06.02 - SHORTNESS OF BREATH Code(s): Z98.890 - OTHER SPECIFIED POSTPROCEDURAL STATES; Z95.818 - PRESENCE OF OTHER CARDIAC IMPLANTS AND GRAFTS (7) Dizziness Current Visit: Yes Status: Acute Assessment & Plan: - may be 2:2 COVID - meclizine PRN VTE: Eliquis PPI: Pepcid Next of KIN: Daughter Bridget who works at [employer] Code status: D/C plan: when BC x2 back. Code(s): R42 - DIZZINESS AND GIDDINESS
[2024-05-24 05:05] LABS: Hematocrit 33.6 % (34.1-44.9); Mean Cell Volume 91.1 fL (79.4-94.8); Mean Corpuscular Hemoglobin 29.8 pg (25.6-32.2); Mean Corpuscular Hgb Concent. 32.7 g/dL (32.2-35.5); Mean Platelet Volume 10.2 fL (9.4-12.3); Platelet Count 191 x10^3/uL (182-369); Red Blood Count 3.69 x10^6/uL (3.93-5.22); Red Cell Distribution Width 12.6 % (11.7-14.4); White Blood Count 4.6 x10^3/uL (3.98-10.04)
[2024-05-24 05:35] LABS: ALBUMIN 2.9 g/dL (3.5-5.0); BILIRUBIN,TOTAL 0.5 mg/dL (0.2-1.3); Calcium 8.4 mg/dL (8.4-10.2); Creatinine 1 0.72 mg/dL (0.52-1.04); EST GLOMERULAR FILTRATION RATE 82.9 ML/MIN; Potassium 3.9 mmol/L (3.5-5.1); Total Protein 5.1 g/dL (6.3-8.2)
[2024-05-24 09:09] VITALS: RESP 17
--- NOTE | 2024-05-24 09:55 | PCM.DS ---
Discharge Summary Date of Admission: 05/22/24 17:44 Date of Discharge: 05/24/24 Admitting Physician: NEHEMIAS SOL MD Primary Care Provider: ANNEMARIE ISSA Allergies Allergies No Known Drug Allergies Allergy (Verified 05/22/24 17:56) Hospital Summary - Hospital Course Hospital Course: 05/22/24 is a 84 year old female with pmhx of history of cardiovascular disease and hypertension. She presented to ER today with a three-day history of shortness of breath and weakness, particularly upon walking. She reports feeling as though she might "hit the floor." This follows a recent COVID-19 infection approximately three weeks prior. COVID test + in ER. She appears to have a UTI per labs, will continue ceftriaxone. Echo done in ER and ER physican reviewed with cardiology at [facility]. After further review cardiology wanted blood cultures drawn and if no growth can d/c as she had a recent procedure on her mitral valve. D-Dimer 0.63 and CTA negative for PE. She denies CP, abd. pain, N/V/D. 05/23/24 Pt resting in bed. She reports she is no longer SOB. She is RA 97%. She continues to have some dizziness with walking to the bathroom and intermittently when laying in bed. Meclizine added PRN.Will have Pt eval pt for home needs. BC x2 still pending. She is in isolation for COVID. Dizziness may be r/t this. She states she is worried but otherwise has no concerns. She denies Cp, SOB, abd. pain, N/V/D. 05/25/24 Pt resting in bed. BC x2 back and negative. Will d/c pt today and she will need to f/u with cardiology OP. Discussed results with daughter as well. Will d/c with medication for UTI. UC was not done by lab and there is no more urine to do a culture at this time. She denies any further concerns at this time. She will need to f/u OP with PCP for repeat UA check. - Vitals & Intake/Output Vital Signs: Vital Signs Temperature 98.6 F 05/24/24 08:00 Pulse Rate 77 05/24/24 08:00 Respiratory Rate 05/24/24 08:00 Blood Pressure 129/61 05/24/24 08:00 O2 Sat by Pulse Oximetry 97 05/24/24 08:00 Intake & Output: Intake & Output 05/21/24 05/22/24 05/23/24 05/24/24 11:59 11:59 11:59 11:59 Intake Total 480 920 Output Total 500 200 Balance -20 720 Weight 54 kg - Lab Result Diagrams: 05/24/24 04:51 05/24/24 04:51 Lab Results-Last 24 Hrs: Lab Results-Last 24 Hours 05/24/24 05/24/24 Range/Units 04:51 04:51 WBC 4.6 (3.98-10.04) x10^3/uL RBC 3.69 L (3.93-5.22) x10^6/uL Hgb 11.0 L (11.2-15.7) g/dL Hct 33.6 L (34.1-44.9) % MCV 91.1 (79.4-94.8) fL MCH 29.8 (25.6-32.2) pg MCHC 32.7 (32.2-35.5) g/dL RDW 12.6 (11.7-14.4) % Plt Count 191 (182-369) x10^3/uL MPV 10.2 (9.4-12.3) fL Sodium 136 (135-145) mmol/L Potassium 3.9 (3.5-5.1) mmol/L Chloride 108 H (98-107) mmol/L Carbon Dioxide 22 (22-30) mmol/L Anion Gap 10.0 (5-15) MEQ/L BUN 11 (7-17) mg/dL Creatinine 0.72 (0.52-1.04) mg/dL Estimated GFR 82.9 ML/MIN Glucose 99 (74-106) mg/dL Calcium 8.4 (8.4-10.2) mg/dL Total Bilirubin 0.50 (0.2-1.3) mg/dL AST 24 (14-36) U/L ALT 15 (0-35) U/L Alkaline Phosphatase 97 (38-126) U/L Serum Total Protein 5.1 L (6.3-8.2) g/dL Albumin 2.9 L (3.5-5.0) g/dL Micro Results-Entire Visit: Microbiology 05/22/24 12:40 Blood Culture - Preliminary Blood 05/22/24 12:56 Blood Culture - Preliminary Blood - Radiology Exams Ordered Rad Exams-Entire Visit: Radiology Procedures Category Date Time Status CHEST WITH CONTRAST [CT] Stat Exams 05/22/24 13:14 Completed ECHO W/2D AND DOPPLER [US] Stat Exams 05/22/24 12:18 Completed - Procedures and Test Procedures and Tests throughout Hospitalization: Therapy Orders & Screens 05/22/24 17:54 PT Eval & Treat ( Order) ONCE Reason for Eval:: weakness Diagnosis: sob Discharge Exam General Appearance: no apparent distress, alert Neurologic Exam: alert, oriented x 3, cooperative, normal mood/affect, nml cerebellar function, sensation nml, No motor deficits Eye Exam: PERRL, EOMI, eyes nml inspection Ears, Nose, Throat Exam: normal ENT inspection, pharynx normal, moist mucous membranes Neck Exam: normal inspection, non-tender, supple, full range of motion Respiratory Exam: normal breath sounds, lungs clear, No respiratory distress Cardiovascular Exam: regular rate/rhythm, normal heart sounds Gastrointestinal/Abdomen Exam: soft, No tenderness, No mass Pelvic Exam: deferred Rectal Exam: deferred Back Exam: normal inspection, normal range of motion, No CVA tenderness, No vertebral tenderness Extremity Exam: normal inspection, normal range of motion Skin Exam: normal color, warm, dry Final Diagnosis/Problem List - Final Discharge Diagnosis/Problem (1) UTI (urinary tract infection) Current Visit: Yes Status: Acute Code(s): N39.0 - URINARY TRACT INFECTION, SITE NOT SPECIFIED (2) COVID-19 Current Visit: Yes Status: Acute Code(s): U07.1 - COVID-19 (3) D-dimer, elevated Current Visit: Yes Status: Acute Code(s): R79.89 - OTHER SPECIFIED ABNORMAL FINDINGS OF BLOOD CHEMISTRY (4) Mitral stenosis Current Visit: Yes Status: Acute Code(s): I05.0 - RHEUMATIC MITRAL STENOSIS (5) SOB (shortness of breath) Current Visit: Yes Status: Acute Code(s): R06.02 - SHORTNESS OF BREATH (6) Status post implantation of mitral valve leaflet clip Current Visit: Yes Status: Chronic Code(s): Z98.890 - OTHER SPECIFIED POSTPROCEDURAL STATES; Z95.818 - PRESENCE OF OTHER CARDIAC IMPLANTS AND GRAFTS (7) Dizziness Current Visit: Yes Status: Acute Assessment & Plan: (1) UTI (urinary tract infection) Current Visit: Yes Status: Acute Assessment & Plan: - Continue ceftriaxone started in ER - UC not done per lab as it did not meet the requirements - Will need OP f/u with PCP after antibiotics completed Code(s): N39.0 - URINARY TRACT INFECTION, SITE NOT SPECIFIED (2) COVID-19 Current Visit: Yes Status: Acute Assessment & Plan: - known infection, tested + 3 weeks ago - isolation Code(s): U07.1 - COVID-19 (3) D-dimer, elevated Current Visit: Yes Status: Acute Assessment & Plan: - D-Dimer 0.63- CT negative for PE - Likely 2:2 COVID Code(s): R79.89 - OTHER SPECIFIED ABNORMAL FINDINGS OF BLOOD CHEMISTRY (4) Mitral stenosis Current Visit: Yes Status: Acute Assessment & Plan: - Chronic hx with recent procedure - Echo reviewed per cardiology and abnormality seen. ER MD discussed with Dr. Silva and advised to keep IP until blood cultures back. If + may need transfer to higher level of care. - BC x2 pending Code(s): I05.0 - RHEUMATIC MITRAL STENOSIS (5) SOB (shortness of breath) Current Visit: Yes Status: Acute Assessment & Plan: - 2:2 COVID - Room air 100% 05/23 - resolved - CTA reviewed: Impression: 1. Negative pulmonary embolus. No acute cardiopulmonary abnormalities. 2. Chronic findings including arteriosclerotic disease, chronic bony findings, fatty liver, and postsurgical changes. (6) Status post implantation of mitral valve leaflet clip Current Visit: Yes Status: Chronic Assessment & Plan: - Completed approx 3 weeks ago now. - BC x2 negative - Consider tx for EEG and ID if BC X2 + - echo reviewed by cardiology. EF 45-50% IMPRESSION: 1) MILD CONCENTRIC LEFT VENTRICULAR HYPERTROPHY. 2) MILD LV SYSTOLIC DYSFUNCTION. 3) MITRAL VALVE CLIPS NOTED ON THE MITRAL VALVE. 4) ECHOGENIC HEART SIZE NOTED. 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 6) MILD MITRAL STENOSIS DUE TO MITRAL CLIPS (WITH AN ACCEPTABLE RESULT). 7) MODERATE MITRAL REGURGITATION, MILD TRICUSPID REGURGITATION, AND MILD AORTIC INSUFFICIENCY. 8) CALCIFIC ATHEROSCLEROSIS WITH MOST LIKELY MILD AORTIC STENOSIS. Code(s): Z98.890 - OTHER SPECIFIED POSTPROCEDURAL STATES; Z95.818 - PRESENCE OF OTHER CARDIAC IMPLANTS AND GRAFTS Code(s): R06.02 - SHORTNESS OF BREATH Code(s): Z98.890 - OTHER SPECIFIED POSTPROCEDURAL STATES; Z95.818 - PRESENCE OF OTHER CARDIAC IMPLANTS AND GRAFTS (7) Dizziness Current Visit: Yes Status: Acute Assessment & Plan: - may be 2:2 COVID - meclizine PRN Code(s): R42 - DIZZINESS AND GIDDINESS - Discharge Discharge Date: 05/24/24 Disposition: Home, Self-Care Condition: Stable Prescriptions: New Meclizine HCl 25 mg [Antivert 25 mg] 12.5 mg PO QID PRN PRN 25 Days #100 tablet PRN Reason: Dizziness Continue Aspirin EC 81 mg [Ecotrin 81 mg] 81 mg PO DAILY Zolpidem Tartrate 10 mg [Ambien 10 MG] 10 mg PO HS Ticagrelor [Brilinta] 90 mg PO Q12H Sacubitril/Valsartan [Entresto 24 mg-26 mg Tablet] 1 each PO Q12H Omeprazole 20 mg PO DAILY PRN PRN PRN Reason: heartburn Metoprolol Succinate 50 mg [Toprol Xl 50 MG] 50 mg PO DAILY Gabapentin [Neurontin ] 300 mg PO HS Atorvastatin Calcium [Lipitor 20MG Tablet] 20 mg PO HS Follow up with: ANNEMARIE ISSA [Primary Care Provider] - 05/30/24 10:00 am CELESTE GAMA [CONSULTING PHYSICIAN] - 06/07/24 12:30 pm ([facility])
[2024-05-24 11:50] VITALS: BP 117/56; PULSE 68; TEMP 98.7; O2SAT 99
== END 2024-05-24 12:56 | disposition home or self-care (01) ==
LOC: ED 11:56 → MED SURG 17:44
PROVIDERS: ADMIT Internal Medicine; ATTEND Internal Medicine
DX: N39.0 Urinary tract infection, site not specified (principal); U07.1 COVID-19; R79.89 Other specified abnormal findings of blood chemistry; I05.0 Rheumatic mitral stenosis; R06.02 Shortness of breath; I10 Essential (primary) hypertension; I25.10 Atherosclerotic heart disease of native coronary artery without angina pectoris; E78.5 Hyperlipidemia, unspecified; Z95.818 Presence of other cardiac implants and grafts; R42 Dizziness and giddiness; Z79.899 Other long term (current) drug therapy; Z79.01 Long term (current) use of anticoagulants
CPT/HCPCS: 0241U; 36000; 36415; 71260; 80053; 81001; 82805; 83605; 83735; 83880; 84484; 85025; 85027; 85379; 85610; 85730; 87040; 93005; 93041; 93306; 96365; 96367; 97161; 97530; 99285; Q3014; 93268; 96374; J0456; J0696; A9270-GY; G0378

== ENCOUNTER 2024-10-11 15:53 | Observation (INO) | payer MEDICARE ==
[2024-10-11 16:33] LABS: Absolute Neutrophil Ct (ANC) 3.63 x10^3/uL (1.56-6.13); BASOPHIL % 0.5 % (0.1-1.2); Basophil (Absolute #) 0.04 x10^3/uL (0.01-0.08); Eosinophil % 2.3 % (0.7-5.8); Eosinophil (Absolute #) 0.17 x10^3/uL (0.04-0.36); Hematocrit 36.9 % (34.1-44.9); Hemoglobin 12.5 g/dL (11.2-15.7); IMMATURE GRAN # 0.03 x10^3u/L (0.001-0.031); IMMATURE GRAN % 0.4 % (0.001-0.429); Lymphocyte (Absolute #) 2.83 x10^3/uL (1.18-3.74); Lymphocytes % 38.6 % (19.3-51.7); Mean Cell Volume 86.8 fL (79.4-94.8); Mean Corpuscular Hemoglobin 29.4 pg (25.6-32.2); Mean Corpuscular Hgb Concent. 33.9 g/dL (32.2-35.5); Mean Platelet Volume 9.9 fL (9.4-12.3); Monocyte (Absolute #) 0.63 x10^3/uL (0.24-0.86); Monocytes % 8.6 % (4.7-12.5); Neutrophil % 49.6 % (34.0-71.1); Platelet Count 236 x10^3/uL (182-369); Red Blood Count 4.25 x10^6/uL (3.93-5.22); Red Cell Distribution Width 13.8 % (11.7-14.4); White Blood Count 7.3 x10^3/uL (3.98-10.04)
[2024-10-11 16:39] LABS: Appearance Clear (Clear); Bacteria Few /HPF (None Seen); Bilirubin Negative (Negative); Blood Moderate (Negative); Epithelial Cells Rare /HPF (None Seen); Glucose, Urine Negative (Negative); Hyaline Casts NONE SEEN /LPF (0-2); Ketones Negative (Negative); Leukocyte Esterase Moderate (Negative); Nitrite Negative (Negative); Ph 5.5 (4.6-8.0); Protein,Urine Dip Negative (Negative); RBC 21-50 /HPF (0-5); Specific Gravity 1.015 (1.005-1.030)
[2024-10-11 16:47] LABS: ALBUMIN 4.2 g/dL (3.5-5.0); ANION GAP 14.7 MEQ/L (5-15); BILIRUBIN,TOTAL 1.2 mg/dL (0.2-1.3); Calcium 9.3 mg/dL (8.4-10.2); Creatinine 1 0.87 mg/dL (0.52-1.04); EST GLOMERULAR FILTRATION RATE 66.1 ML/MIN
[2024-10-11 16:48] LABS: INR 1.02 (0.8-3.0); PROTIME 11.1 SECONDS (9.4-12.5); PTT 27.9 SECONDS (25.1-36.5)
[2024-10-11] MEDS: Sodium Chloride 0.9% 1000 ML 1,000 ML IV STA (16:48)
[2024-10-11] MEDS ORDERED: Sodium Chloride 0.9% 1000 ML 1,000 ML ONE (16:48)
--- NOTE | 2024-10-11 16:50 | ERPHSYRPT ---
- History of Present Illness Time Seen by Provider: 10/11/24 15:54 Source: patient, family Exam Limitations: no limitations Patient Subjective Stated Complaint: Patient was at the and was having difficulty speaking to the staff. Staff reports trouble finding her words. They know the patient and knew this wasn't her normal way of speaking, gave her some chocolate, then called the patient's daughter. The daughter picked her up at the and brought her to the ER for evaluation. Triage Nursing Assessment: Patient is awake and alert but anxious. She is still having some difficulties with speech. Her speech is clear but some of her word repsonses are slow. Patient recalls the events that led up to her being in the ER today. Physician History: 84 years old female with history of hypertension, hyperlipidemia, mitral stenosis is brought in the ER by daughter after patient was having some difficulty word findings at [facility] prior to arrival. Patient reports she did not figure it out what to speak in her words were not right. [place] confused. Bystander thought patient was having low glucose and was given chocolate. Patient reports weakness all over and no other focal weakness. Does have some difficulty speech while in the ER but according to daughter this does happen when she gets anxious. Denies any chest pain, does have shortness of breath which she has chronically there and is not any worse than usual. Patient blood sugar was 96 on presentation in the ER. Allergies/Adverse Reactions: azithromycin Allergy (Verified 10/12/24 14:27) Itching and pain with IV med Home Medications: Aspirin EC 81 mg [Ecotrin 81 mg] 81 mg PO DAILY 05/22/24 [History] Atorvastatin Calcium [Lipitor 20MG Tablet] 20 mg PO HS 05/22/24 [History] Gabapentin [Neurontin ] 300 mg PO HS 05/22/24 [History] Metoprolol Succinate 50 mg [Toprol Xl 50 MG] 50 mg PO DAILY 05/22/24 [History] Omeprazole 20 mg PO DAILY PRN PRN 05/22/24 [History] Sacubitril/Valsartan [Entresto 24 mg-26 mg Tablet] 1 each PO Q12H 05/22/24 [History] Ticagrelor [Brilinta] 90 mg PO Q12H 05/22/24 [History] Zolpidem Tartrate 10 mg [Ambien 10 MG] 10 mg PO HS 05/22/24 [History] Hx Tetanus, Diphtheria Vaccination/Date Given: Yes Hx Influenza Vaccination/Date Given: Yes Hx Pneumococcal Vaccination/Date Given: Yes Immunizations Up to Date: Yes Travel Risk - International Travel Have you traveled outside of the country in past 3 weeks: No - Emerging Infectious Disease Are you exhibiting symptoms associated with any current EIDs: No Symptoms: Headaches/Body Aches/, Loss of taste or smell - Review of Systems Constitutional: Fatigue, Weakness Eyes: No Symptoms Ears, Nose, & Throat: No Symptoms Respiratory: Dyspnea Cardiac: No Symptoms Abdominal/Gastrointestinal: No Symptoms Genitourinary Symptoms: No Symptoms Skin: No Symptoms Neurological: Dizziness, Speech Changes Psychological: Anxiety Endocrine: No Symptoms Hematologic/Lymphatic: No Symptoms Immunological/Allergic: No Symptoms - Past Medical History Pertinent Past Medical History: Yes Neurological History: No Pertinent History ENT History: No Pertinent History Cardiac History: Coronary Artery Disease, High Cholesterol, Hypertension Respiratory History: No Pertinent History Endocrine Medical History: No Pertinent History Musculoskeletal History: Arthritis GI Medical History: No Pertinent History History: No Pertinent History Psycho-Social History: Anxiety Female Reproductive Disorders: No Pertinent History Other Medical History: detaching retina but pt can't remember which eye but she thinks it is the Right eye - Past Surgical History Past Surgical History: Yes Neuro Surgical History: No Pertinent History Cardiac: Cardiac Catheterization, Cardiac Stent, Vascular Surgery, Other Respiratory: No Pertinent History Gastrointestinal: Appendectomy, Cholecystectomy Genitourinary: No Pertinent History Musculoskeletal: No Pertinent History, Other Female Surgical History: Hysterectomy Other Surgical History: valve clips - Social History Smoking Status: Never smoker Exposure to second hand smoke: Yes Drug Use: none - Social Determinants of Health Will the patient participate in the screening: Yes Do you worry about a steady place to live?: No Do you have any problems with any of the following?: No known problems In the past 12 months,have you had to go without utilities?: No Transportation Issues: No Has anyone in your support network made you feel unsafe?: No Have you or anyone in your house had to go without enough: No - Nursing Vital Signs Nursing Vital Signs: Initial Vital Signs Temperature 98 F 10/11/24 15:53 Pulse Rate 108 H 10/11/24 15:53 Respiratory Rate 20 10/11/24 15:53 Blood Pressure 138/85 10/11/24 15:53 O2 Sat by Pulse Oximetry 100 10/11/24 15:53 Pain Scale Pain Intensity 2 - Lopez Coma Scale Best Eye Response (Lopez): (4) open spontaneously Best Verbal Response (Lopez): (5) oriented Best Motor Response ([place]): (6) obeys commands Lopez Total: 15 - Physical Exam General Appearance: no apparent distress, alert, anxiety Eye Exam: bilateral eye: normal inspection, PERRL, EOMI Ears, Nose, Throat Exam: normal ENT inspection, TMs normal, moist mucous membranes Neck Exam: normal inspection, non-tender, supple, full range of motion Respiratory: normal breath sounds, lungs clear Cardiovascular: regular rate/rhythm, normal heart sounds Gastrointestinal: soft, normal bowel sounds, No tenderness Back Exam: normal inspection, normal range of motion Extremity Exam: normal inspection, normal range of motion, pelvis stable Mental Status: alert, oriented x 3, cooperative, 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 Exam: normal hearing, PERRL, No normal speech Coordination/Gait: normal finger to nose Motor/Sensory: no motor deficit, no sensory deficit, no pronator drift, negative Babinski's sign Skin Exam: normal color SpO2 Interpretation: normal SpO2: 98 O2 Delivery: Room Air - Course EKG Interpreted by Me: RATE ([id number]), Sinus Tach, NORMAL AXIS, prolonged QT interval, Non-specific ST Changes Ordered Tests: Active Orders 24 hr Category Date Time Status Bedrest ROUTINE Activity 10/11/24 20:09 Active Up With Assistance ROUTINE Activity 10/11/24 20:09 Active Call Admit Doctor for Orders ON ADMISSION Care 10/11/24 20:09 Active Code Status Order ROUTINE Care 10/11/24 20:09 Active Fall Protocol Q1H Care 10/11/24 20:09 Active NPO (ED) STAT Care 10/11/24 15:[address] in Observation ROUTINE Care 10/11/24 20:09 Active Telemetry q6h Care 10/11/24 20:09 Active CHEST 1 VIEW (PORTABLE) Stat Exams 10/11/24 15:56 Completed HEAD WITHOUT CONTRAST [CT] Stat Exams 10/11/24 15:54 Completed CBC W DIFF Stat Lab 10/11/24 15:54 Completed CMP Stat Lab 10/11/24 16:15 Completed CULTURE,URINE Stat Lab 10/11/24 16:32 Results Lactic Acid Stat Lab 10/11/24 15:54 Completed MAG [MAGNESIUM] Stat Lab 10/11/24 16:15 Completed POCT GLUCOSE Stat Lab 10/11/24 16:20 Completed PROTIME WITH INR Stat Lab 10/11/24 16:15 Completed PTT Stat Lab 10/11/24 16:15 Completed TROPONIN Q4H Lab 10/11/24 16:15 Completed TROPONIN Q4H Lab 10/11/24 21:25 Completed UA W/RFX UR CULTURE Stat Lab 10/11/24 16:32 Completed Pulse Oximetry ROUTINE RT 10/11/24 20:09 Completed Medication Summary Generic Name Dose Route Start Last Admin Trade Name Freq PRN Reason Stop Dose Admin Acetaminophen 325 mg 10/11/24 20:37 Acetaminophen 325 Mg Tablet PO 11/10/24 20:36 Q4H PRN PRN PAIN, FEVER, HEADACHE Hydrocodone Bitart/Acetaminophen 1 tab 10/11/24 20:56 10/12/24 14:36 Hydrocodone/Apap 5/325 1 Tab Tablet PO 10/16/24 20:55 1 tab QID PRN PRN Administration PAIN Aspirin 81 mg 10/12/24 10:00 10/12/24 09:04 Aspirin 81 Mg Tablet.Ec PO 11/11/24 09:59 81 mg DAILY DANII Administration Atorvastatin Calcium 80 mg 10/13/24 10:00 Atorvastatin Calcium 40 Mg Tablet PO 11/12/24 09:59 DAILY DANII Gabapentin 300 mg 10/11/24 22:00 10/11/24 21:35 Gabapentin 300 Mg Capsule PO 11/10/24 21:59 300 mg HS DANII Administration Ceftriaxone Sodium 1 gm in 100 mls @ 200 mls/hr 10/13/24 10:00 Rocephin 1 Gm / 100 Ml Nacl IV 11/12/24 09:59 HS DANII Doxycycline Hyclate 100 mg/ 100 mls @ 100 mls/hr 10/12/24 15:00 10/12/24 14:39 Dextrose IV 11/11/24 14:59 100 mls/hr Q12HT DANII Administration Lactobacillus Acidophilus 1 tab 10/12/24 10:00 10/12/24 09:05 Lactobacillus Acidophilus 1 Tab Tablet PO 11/11/24 09:59 1 tab DAILY DANII Administration Magnesium Hydroxide 30 ml 10/11/24 20:37 Magnesium Hydroxide 30 Ml Udcup PO 11/10/24 20:36 HS PRN PRN CONSTIPATION Meclizine HCl 12.5 mg 10/11/24 20:35 Meclizine Hcl 25 Mg Tablet PO 11/10/24 20:34 QID PRN PRN DIZZINESS Metoprolol Succinate 50 mg 10/12/24 10:00 10/12/24 09:05 Metoprolol Succinate 50 Mg Tablet.Sa PO 11/11/24 09:59 50 mg DAILY DANII Administration Ondansetron HCl 4 mg 10/11/24 20:37 10/12/24 14:36 Ondansetron Hcl 4 Mg/2 Ml Vial IV 11/10/24 20:36 4 mg Q6H PRN PRN Administration NAUSEA/VOMITING Pantoprazole Sodium 20 mg 10/12/24 07:33 Pantoprazole 20 Mg Tab PO 11/11/24 07:32 DAILY PRN PRN heartburn Sacubitril/Valsartan 0.5 tablet 10/12/24 10:00 10/12/24 09:05 Sacubitril/Valsartan 1 Tablet Tablet PO 11/11/24 09:59 0.5 tablet BID DANII Administration Ticagrelor 90 mg 10/12/24 10:00 10/12/24 09:05 Ticagrelor 90 Mg Tablet PO 11/10/24 20:44 90 mg BID DANII Administration Zolpidem Tartrate 10 mg 10/11/24 22:00 10/11/24 21:27 Zolpidem Tartrate 10 Mg Tablet PO 11/10/24 21:59 10 mg HS DANII Administration Discontinued Medications Generic Name Dose Route Start Last Admin Trade Name Freq PRN Reason Stop Dose Admin Acetaminophen 1,000 mg 10/11/24 17:52 10/11/24 17:55 Acetaminophen 500 Mg Tablet PO 10/11/24 17:53 1,000 mg STAT STA Administration Acetaminophen Confirm 10/11/24 17:54 Acetaminophen 500 Mg Tablet Administered 10/11/24 17:55 Dose 1,000 mg .ROUTE .STK-MED ONE Diphenhydramine HCl 25 mg 10/12/24 14:25 10/12/24 14:35 Diphenhydramine Hcl 50 Mg/Ml Vial IM 10/12/24 14:26 Not Given STAT ONE Diphenhydramine HCl 25 mg 10/12/24 14:45 10/12/24 14:33 Diphenhydramine Hcl 50 Mg/Ml Vial IV 10/12/24 14:46 25 mg STAT ONE Administration Sodium Chloride 1,000 mls @ 999 mls/hr 10/11/24 17:00 10/11/24 18:12 Sodium Chloride 0.9% 1000 Ml IV 11/10/24 16:59 Not Given .Q1H1M DANII Sodium Chloride 1,000 mls @ 999 mls/hr 10/11/24 16:46 10/11/24 17:57 Sodium Chloride 0.9% 1000 Ml IV 10/11/24 17:46 Infused .Q1H1M STA Infusion Sodium Chloride Confirm 10/11/24 16:48 Sodium Chloride 0.9% 1000 Ml Administered 10/11/24 16:49 Dose 1,000 mls @ ud .ROUTE .STK-MED ONE Ceftriaxone Sodium 1 gm in 100 mls @ 200 mls/hr 10/11/24 20:45 10/11/24 21:28 Rocephin 1 Gm / 100 Ml Nacl IV 11/10/24 20:44 200 mls/hr Q24H DANII Administration Ceftriaxone Sodium 1 gm in 100 mls @ 200 mls/hr 10/12/24 22:00 Rocephin 1 Gm / 100 Ml Nacl IV 11/10/24 20:44 HS DANII Ceftriaxone Sodium 1 gm in 100 mls @ 200 mls/hr 10/13/24 22:00 Rocephin 1 Gm / 100 Ml Nacl IV 11/12/24 21:59 HS DANII Azithromycin / Sodium Chloride 250 mls @ 250 mls/hr 10/12/24 13:30 IV 11/11/24 13:29 Q24H10 DANII Azithromycin 500 mg in 250 mls @ 250 mls/hr 10/12/24 14:00 10/12/24 14:01 Zithromax 500 Mg/ 250 Ml Nacl Premix IV 11/11/24 13:59 250 mls/hr DAILY DANII Administration Morphine Sulfate 1 mg 10/11/24 20:55 10/12/24 08:53 Morphine Sulfate 2 Mg/Ml Inj IV 10/16/24 20:54 1 mg Q4H PRN PRN Administration PAIN Non-Formulary Medication 1 each 10/11/24 20:45 10/11/24 21:36 Sacubitril/Valsartan [Entresto 24 Mg-26 Mg Tablet] PO 11/10/24 20:44 Not Given Q12H DANII Non-Formulary Medication 20 mg 10/11/24 22:00 Atorvastatin Calcium PO 11/10/24 21:59 HS DANII Simvastatin Confirm 10/11/24 21:23 Simvastatin 20 Mg Tablet Administered 10/11/24 21:24 Dose 20 mg .ROUTE .STK-MED ONE Simvastatin 20 mg 10/11/24 22:00 10/11/24 21:38 Simvastatin 20 Mg Tablet PO 11/10/24 21:59 20 mg HS DANII Administration Ticagrelor 90 mg 10/11/24 20:45 10/11/24 21:35 Ticagrelor 90 Mg Tablet PO 11/10/24 20:44 Not Given Q12H DANII Lab/Rad Data: Laboratory Result Diagrams 10/11/24 15:54 10/11/24 16:15 Laboratory Results 10/11/24 10/11/24 10/11/24 Range/Units 16:32 16:20 16:15 WBC (3.98-10.04) x10^3/uL RBC (3.93-5.22) x10^6/uL Hgb (11.2-15.7) g/dL Hct (34.1-44.9) % MCV (79.4-94.8) fL MCH (25.6-32.2) pg MCHC (32.2-35.5) g/dL RDW (11.7-14.4) % Plt Count (182-369) x10^3/uL MPV (9.4-12.3) fL Gran % (34.0-71.1) % Immature Gran % (Auto) (0.001-0.429) % Nucleat RBC Rel Count (0.00-0.2) % Eos # (Auto) (0.04-0.36) x10^3/uL Immature Gran # (Auto) (0.001-0.031) x10^3u/L Absolute Lymphs (auto) (1.18-3.74) x10^3/uL Absolute Monos (auto) (0.24-0.86) x10^3/uL Absolute Nucleated RBC (0.00-0.012) x10^3u/L Lymphocytes % (19.3-51.7) % Monocytes % (4.7-12.5) % Eosinophils % (0.7-5.8) % Basophils % (0.1-1.2) % Absolute Granulocytes (1.56-6.13) x10^3/uL Basophils # (0.01-0.08) x10^3/uL PT (9.4-12.5) SECONDS INR (0.8-3.0) APTT (25.1-36.5) SECONDS Sodium (135-145) mmol/L Potassium (3.5-5.1) mmol/L Chloride (98-107) mmol/L Carbon Dioxide (22-30) mmol/L Anion Gap (5-15) MEQ/L BUN (7-17) mg/dL Creatinine (0.52-1.04) mg/dL Estimated GFR ML/MIN Glucose (74-106) mg/dL POC Glucometer 91 (74 to 106) mg/dL Lactic Acid (0.4-2.0) Calcium (8.4-10.2) mg/dL Magnesium (1.6-2.3) mg/dL Total Bilirubin (0.2-1.3) mg/dL AST (14-36) U/L ALT (0-35) U/L Alkaline Phosphatase (38-126) U/L Troponin I < 0.012 (0.000-0.033) ng/mL Serum Total Protein (6.3-8.2) g/dL Albumin (3.5-5.0) g/dL Urine Color Yellow (Yellow) Urine Appearance Clear (Clear) Urine pH 5.5 (4.6-8.0) Ur Specific [place] 1.015 (1.005-1.030) Urine Protein Negative (Negative) Urine Glucose (UA) Negative (Negative) mg/dL Urine Ketones Negative (Negative) Urine Blood Moderate A (Negative) Urine Nitrite Negative (Negative) Urine Bilirubin Negative (Negative) Urine Urobilinogen 1.0 A (0.2) mg/dL Ur Leukocyte Esterase Moderate A (Negative) U Hyaline Cast (Auto) NONE SEEN (0-2) /LPF Urine Microscopic RBC 21-50 A (0-5) /HPF Urine Microscopic WBC 11-20 A (0-5) /HPF Ur Epithelial Cells Rare (None Seen) /HPF Urine Bacteria Few A (None Seen) /HPF Urine Culture Reflexed YES (NO) 10/11/24 10/11/24 10/11/24 Range/Units 16:15 16:15 16:15 WBC (3.98-10.04) x10^3/uL RBC (3.93-5.22) x10^6/uL Hgb (11.2-15.7) g/dL Hct (34.1-44.9) % MCV (79.4-94.8) fL MCH (25.6-32.2) pg MCHC (32.2-35.5) g/dL RDW (11.7-14.4) % Plt Count (182-369) x10^3/uL MPV (9.4-12.3) fL Gran % (34.0-71.1) % Immature Gran % (Auto) (0.001-0.429) % Nucleat RBC Rel Count (0.00-0.2) % Eos # (Auto) (0.04-0.36) x10^3/uL Immature Gran # (Auto) (0.001-0.031) x10^3u/L Absolute Lymphs (auto) (1.18-3.74) x10^3/uL Absolute Monos (auto) (0.24-0.86) x10^3/uL Absolute Nucleated RBC (0.00-0.012) x10^3u/L Lymphocytes % (19.3-51.7) % Monocytes % (4.7-12.5) % Eosinophils % (0.7-5.8) % Basophils % (0.1-1.2) % Absolute Granulocytes (1.56-6.13) x10^3/uL Basophils # (0.01-0.08) x10^3/uL PT 11.1 (9.4-12.5) SECONDS INR 1.02 (0.8-3.0) APTT 27.9 (25.1-36.5) SECONDS Sodium 139 (135-145) mmol/L Potassium 4.0 (3.5-5.1) mmol/L Chloride 108 H (98-107) mmol/L Carbon Dioxide 21 L (22-30) mmol/L Anion Gap 14.7 (5-15) MEQ/L BUN 14 (7-17) mg/dL Creatinine 0.87 (0.52-1.04) mg/dL Estimated GFR 66.1 ML/MIN Glucose 96 (74-106) mg/dL POC Glucometer (74 to 106) mg/dL Lactic Acid (0.4-2.0) Calcium 9.3 (8.4-10.2) mg/dL Magnesium 1.8 (1.6-2.3) mg/dL Total Bilirubin 1.20 (0.2-1.3) mg/dL AST 33 (14-36) U/L ALT 18 (0-35) U/L Alkaline Phosphatase 134 H (38-126) U/L Troponin I (0.000-0.033) ng/mL Serum Total Protein 7.0 (6.3-8.2) g/dL Albumin 4.2 (3.5-5.0) g/dL Urine Color (Yellow) Urine Appearance (Clear) Urine pH (4.6-8.0) Ur Specific [place] (1.005-1.030) Urine Protein (Negative) Urine Glucose (UA) (Negative) mg/dL Urine Ketones (Negative) Urine Blood (Negative) Urine Nitrite (Negative) Urine Bilirubin (Negative) Urine Urobilinogen (0.2) mg/dL Ur Leukocyte Esterase (Negative) U Hyaline Cast (Auto) (0-2) /LPF Urine Microscopic RBC (0-5) /HPF Urine Microscopic WBC (0-5) /HPF Ur Epithelial Cells (None Seen) /HPF Urine Bacteria (None Seen) /HPF Urine Culture Reflexed (NO) 10/11/24 10/11/24 Range/Units 15:54 15:54 WBC 7.3 (3.98-10.04) x10^3/uL RBC 4.25 (3.93-5.22) x10^6/uL Hgb 12.5 (11.2-15.7) g/dL Hct 36.9 (34.1-44.9) % MCV 86.8 (79.4-94.8) fL MCH 29.4 (25.6-32.2) pg MCHC 33.9 (32.2-35.5) g/dL RDW 13.8 (11.7-14.4) % Plt Count 236 (182-369) x10^3/uL MPV 9.9 (9.4-12.3) fL Gran % 49.6 (34.0-71.1) % Immature Gran % (Auto) 0.4 (0.001-0.429) % Nucleat RBC Rel Count 0.0 (0.00-0.2) % Eos # (Auto) 0.17 (0.04-0.36) x10^3/uL Immature Gran # (Auto) 0.03 (0.001-0.031) x10^3u/L Absolute Lymphs (auto) 2.83 (1.18-3.74) x10^3/uL Absolute Monos (auto) 0.63 (0.24-0.86) x10^3/uL Absolute Nucleated RBC 0.00 (0.00-0.012) x10^3u/L Lymphocytes % 38.6 (19.3-51.7) % Monocytes % 8.6 (4.7-12.5) % Eosinophils % 2.3 (0.7-5.8) % Basophils % 0.5 (0.1-1.2) % Absolute Granulocytes 3.63 (1.56-6.13) x10^3/uL Basophils # 0.04 (0.01-0.08) x10^3/uL PT (9.4-12.5) SECONDS INR (0.8-3.0) APTT (25.1-36.5) SECONDS Sodium (135-145) mmol/L Potassium (3.5-5.1) mmol/L Chloride (98-107) mmol/L Carbon Dioxide (22-30) mmol/L Anion Gap (5-15) MEQ/L BUN (7-17) mg/dL Creatinine (0.52-1.04) mg/dL Estimated GFR ML/MIN Glucose (74-106) mg/dL POC Glucometer (74 to 106) mg/dL Lactic Acid 1.7 (0.4-2.0) Calcium (8.4-10.2) mg/dL Magnesium (1.6-2.3) mg/dL Total Bilirubin (0.2-1.3) mg/dL AST (14-36) U/L ALT (0-35) U/L Alkaline Phosphatase (38-126) U/L Troponin I (0.000-0.033) ng/mL Serum Total Protein (6.3-8.2) g/dL Albumin (3.5-5.0) g/dL Urine Color (Yellow) Urine Appearance (Clear) Urine pH (4.6-8.0) Ur Specific [place] (1.005-1.030) Urine Protein (Negative) Urine Glucose (UA) (Negative) mg/dL Urine Ketones (Negative) Urine Blood (Negative) Urine Nitrite (Negative) Urine Bilirubin (Negative) Urine Urobilinogen (0.2) mg/dL Ur Leukocyte Esterase (Negative) U Hyaline Cast (Auto) (0-2) /LPF Urine Microscopic RBC (0-5) /HPF Urine Microscopic WBC (0-5) /HPF Ur Epithelial Cells (None Seen) /HPF Urine Bacteria (None Seen) /HPF Urine Culture Reflexed (NO) - Progress Progress: improved Progress Note: 10/11/24 18:32 84 years old is evaluated in the ER for sudden difficulty speech while she was at [facility] which started to improve and route to ER and still having some but later on she is back to normal. No other focal neuro symptoms. Patient was weak all over and orthostatic, given fluids. EKG did not show any acute ST elevations. Negative initial troponins. Normal white count, chemistries fairly unremarkable. 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 Patient later on admitted having similar symptoms almost a year ago which resolved. Prompt [facility] neurology consult is obtained, neurology recommended MRI in the morning, continue with aspirin and Brilinta and increasing dose of atorvastatin to 80 mg daily. Patient is feeling almost back to her baseline on reevaluation. I have shared the results of workup with patient and family and plan of admission which they understand and agree. Discussed with Dr. Melara and patient is being admitted. Discussed with : Rosa, Other ([facility] neurology) Counseled pt/family regarding: diagnosis, need for follow-up, rad results Medical Desision Making - Independent Historian Additional History obtained from: Child - Discussion of managment Care discussed with:: specialist ([facility] neurology and Dr. Melara hospitalist) Reviewed:: Test results Agreed on:: Treatment plan, place in obs Will see patient: in hospital - Diagnostic Testing Diagnostic test were ordered, analyzed, and reviewed by me: Yes Radiological Interpretation: Interpreted by me, Reviewed by me, Teleradiologist Report - Risk of complications The pt has a mod risk of morbidity or mortality based on: Need for prescription drug management The pt has a high risk of morbidity or mortality based on: Decision regarding hospitilization or escalation of hosp level of care - Departure Departure Disposition: Observation Clinical Impression: TIA (transient ischemic attack), Orthostatic dizziness Condition: Stable Critical Care Time: No
[2024-10-11] MEDS: Sodium Chloride 0.9% 1000 ML 1,000 ML IV SCH (16:56)
[2024-10-11] MEDS ORDERED: TYLENOL EXTRA STRENGTH 500 MG ONE (17:54)
[2024-10-11] MEDS: TYLENOL EXTRA STRENGTH 500 MG PO STA (17:55)
--- NOTE | 2024-10-11 19:35 | XRAY ---
Indication: Altered mental status. Multiple contiguous axial images obtained through the head without contrast. Comparison: None Age-appropriate global atrophy. Bilateral basal ganglia remote lacunar infarcts, right greater than left. No acute intracranial hemorrhage, abnormal extra-axial fluid collection, or mass effect. Fourth ventricle is midline without hydrocephalus. Taylor-white matter differentiation preserved. Bony calvarium intact. Visualized paranasal sinuses are clear. Partial opacification inferior left mastoid air cells presumed inflammatory. Impression: 1. Bilateral basal ganglia remote lacunar infarcts. 2. Partial opacification left mastoid air cells presumed inflammatory. 3. No acute intracranial abnormalities.
[2024-10-11] MEDS ORDERED: NON-FORMULARY ITEM (Omeprazole [Omeprazole] 20 MG Capsule.Dr) PO PRN (20:35)
[2024-10-11] MEDS ORDERED: ANTIVERT 25 MG PO PRN (20:35)
[2024-10-11] MEDS ORDERED: MILK OF MAGNESIA 30 ML PO PRN (20:37)
[2024-10-11] MEDS ORDERED: TYLENOL 325 MG PO PRN (20:37)
--- NOTE | 2024-10-11 21:15 | PCM.HP ---
History of Present Illness - Chief Complaint Chief Complaint: TIA Date: 10/11/24 History of Present Illness: is a 84 year old female with a history of hypertension, hyperlipidemia, mitral stenosis (and chronic heart murmur), CAD (s/p PCI, and follows with Dr. Barr), who presented to the ER by daughter after patient was having some difficulty word findings at [facility] prior to arrival. Patient reports she did not figure it out what to speak in her words were not right. [place] confused. Bystander thought patient was having low glucose and was given chocolate. Patient reports weakness all over and no other focal weakness. Does have some difficulty speech while in the ER but according to daughter this does happen when she gets anxious. Denies any chest pain, does have shortness of breath which she has chronically there and is not any worse than usual. Patient blood sugar was 96 on presentation in the ER. Per the ER physician, the patient had been scheduled for outpatient MRI brain and CTA head/neck. 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 - Review of Systems Eyes: No Symptoms Ears, Nose, & Throat: No Symptoms Respiratory: No Symptoms Cardiac: No Symptoms Abdominal/Gastrointestinal: No Symptoms Genitourinary Symptoms: No Symptoms Musculoskeletal: No Symptoms Skin: No Symptoms Neurological: Dizziness, Speech Changes Psychological: No Symptoms Endocrine: No Symptoms Hematologic/Lymphatic: No Symptoms Immunological/Allergic: No Symptoms All Other Systems: Reviewed and Negative Medications & Allergies Home Medications: Home Medication List Aspirin EC 81 mg [Ecotrin 81 mg] 81 mg PO DAILY 05/22/24 [History Confirmed 10/11/24] Atorvastatin Calcium [Lipitor 20MG Tablet] 20 mg PO HS 05/22/24 [History Confirmed 10/11/24] Gabapentin [Neurontin ] 300 mg PO HS 05/22/24 [History Confirmed 10/11/24] Metoprolol Succinate 50 mg [Toprol Xl 50 MG] 50 mg PO DAILY 05/22/24 [History Confirmed 10/11/24] Omeprazole 20 mg PO DAILY PRN PRN 05/22/24 [History Confirmed 10/11/24] Sacubitril/Valsartan [Entresto 24 mg-26 mg Tablet] 1 each PO Q12H 05/22/24 [History Confirmed 10/11/24] Ticagrelor [Brilinta] 90 mg PO Q12H 05/22/24 [History Confirmed 10/11/24] Zolpidem Tartrate 10 mg [Ambien 10 MG] 10 mg PO HS 05/22/24 [History Confirmed 10/11/24] Meclizine HCl 25 mg [Antivert 25 mg] 12.5 mg PO QID PRN PRN 25 Days #100 tablet 05/24/24 [Rx Confirmed 10/11/24] Allergies/Adverse Reactions: Allergies Allergy/AdvReac Type Severity Reaction Status Date / Time No Known Drug Allergies Allergy Verified 05/22/24 17:56 - Past Medical History Past Medical History: Yes Neurological History: No Pertinent History ENT History: No Pertinent History Cardiac History: Coronary Artery Disease, High Cholesterol, Hypertension Respiratory History: No Pertinent History Endocrine Medical History: No Pertinent History Musculoskelatal History: Arthritis GI Medical History: No Pertinent History History: No Pertinent History Pyscho-Social History: Anxiety Reproductive Disorders: No Pertinent History Comment: detaching retina but pt can't remember which eye but she thinks it is the Right eye - Past Surgical History Past Surgical History: Yes Neuro Surgical History: No Pertinent History Cardiac History: Cardiac Catheterization, Cardiac Stent, Vascular Surgery, Other Respiratory Surgery: No Pertinent History GI Surgical History: Appendectomy, Cholecystectomy Genitourinary Surgical Hx: No Pertinent History Musculskeletal Surgical Hx: No Pertinent History, Other Female Surgical History: Hysterectomy Other Surgical History: valve clips, 6 stents Family History: No family history of early cardiovascular disease reported. - Social History Smoking Status: Never smoker Exposure to second hand smoke: Yes Alcohol: None Drug Use: none - Social Determinants of Health Will the patient participate in the screening: Yes Do you worry about a steady place to live?: No Do you have any problems with any of the following?: No known problems In the past 12 months,have you had to go without utilities?: No Have you or anyone in your house had to go without enough: No Transportation Issues: No Has anyone in your support network made you feel unsafe?: No Does the patient want assistance with any of the above?: No - Physical Exam Vital Signs: Vital Signs - 24 hr Temp Pulse Resp BP BP Pulse Ox 10/11/24 20:30 97.2 F 104 H 19 167/81 98 10/11/24 19:35 105 H 18 134/78 99 10/11/24 19:32 100 10/11/24 18:36 98 10/11/24 18:30 94 H 18 132/73 99 10/11/24 18:00 116 H 16 151/100 98 10/11/24 17:30 109 H 15 152/94 99 10/11/24 17:29 111 H 17 141/87 100 10/11/24 17:00 110 H 22 146/73 100 10/11/24 16:30 107 H 19 145/70 98 10/11/24 16:28 97 H 16 147/69 100 10/11/24 15:53 98 F 108 H 20 138/85 100 General Appearance: no apparent distress, alert Neurologic Exam: alert, oriented x 3, cooperative, publications writer II-XII nml as tested, normal mood/affect, nml cerebellar function Eye Exam: PERRL/EOMI, eyes nml inspection Ears, Nose, Throat Exam: normal ENT inspection Neck Exam: normal inspection, non-tender, supple, full range of motion Respiratory Exam: normal breath sounds, lungs clear Cardiovascular Exam: regular rate/rhythm, murmur Gastrointestinal/Abdomen Exam: soft, normal bowel sounds Back Exam: normal range of motion Extremity Exam: normal inspection, normal range of motion Skin Exam: normal color Results - Labs Lab/Micro Results: Lab Results-Last 24 Hours 10/11/24 10/11/24 10/11/24 Range/Units 15:54 15:54 16:15 WBC 7.3 (3.98-10.04) x10^3/uL RBC 4.25 (3.93-5.22) x10^6/uL Hgb 12.5 (11.2-15.7) g/dL Hct 36.9 (34.1-44.9) % MCV 86.8 (79.4-94.8) fL MCH 29.4 (25.6-32.2) pg MCHC 33.9 (32.2-35.5) g/dL RDW 13.8 (11.7-14.4) % Plt Count 236 (182-369) x10^3/uL MPV 9.9 (9.4-12.3) fL Gran % 49.6 (34.0-71.1) % Immature Gran % (Auto) 0.4 (0.001-0.429) % Nucleat RBC Rel Count 0.0 (0.00-0.2) % Eos # (Auto) 0.17 (0.04-0.36) x10^3/uL Immature Gran # (Auto) 0.03 (0.001-0.031) x10^3u/L Absolute Lymphs (auto) 2.83 (1.18-3.74) x10^3/uL Absolute Monos (auto) 0.63 (0.24-0.86) x10^3/uL Absolute Nucleated RBC 0.00 (0.00-0.012) x10^3u/L Lymphocytes % 38.6 (19.3-51.7) % Monocytes % 8.6 (4.7-12.5) % Eosinophils % 2.3 (0.7-5.8) % Basophils % 0.5 (0.1-1.2) % Absolute Granulocytes 3.63 (1.56-6.13) x10^3/uL Basophils # 0.04 (0.01-0.08) x10^3/uL PT (9.4-12.5) SECONDS INR (0.8-3.0) APTT (25.1-36.5) SECONDS Sodium 139 (135-145) mmol/L Potassium 4.0 (3.5-5.1) mmol/L Chloride 108 H (98-107) mmol/L Carbon Dioxide 21 L (22-30) mmol/L Anion Gap 14.7 (5-15) MEQ/L BUN 14 (7-17) mg/dL Creatinine 0.87 (0.52-1.04) mg/dL Estimated GFR 66.1 ML/MIN Glucose 96 (74-106) mg/dL POC Glucometer (74 to 106) mg/dL Lactic Acid 1.7 (0.4-2.0) Calcium 9.3 (8.4-10.2) mg/dL Magnesium (1.6-2.3) mg/dL Total Bilirubin 1.20 (0.2-1.3) mg/dL AST 33 (14-36) U/L ALT 18 (0-35) U/L Alkaline Phosphatase 134 H (38-126) U/L Troponin I (0.000-0.033) ng/mL Serum Total Protein 7.0 (6.3-8.2) g/dL Albumin 4.2 (3.5-5.0) g/dL Urine Color (Yellow) Urine Appearance (Clear) Urine pH (4.6-8.0) Ur Specific [place] (1.005-1.030) Urine Protein (Negative) Urine Glucose (UA) (Negative) mg/dL Urine Ketones (Negative) Urine Blood (Negative) Urine Nitrite (Negative) Urine Bilirubin (Negative) Urine Urobilinogen (0.2) mg/dL Ur Leukocyte Esterase (Negative) U Hyaline Cast (Auto) (0-2) /LPF Urine Microscopic RBC (0-5) /HPF Urine Microscopic WBC (0-5) /HPF Ur Epithelial Cells (None Seen) /HPF Urine Bacteria (None Seen) /HPF Urine Culture Reflexed (NO) 10/11/24 10/11/24 10/11/24 Range/Units 16:15 16:15 16:15 WBC (3.98-10.04) x10^3/uL RBC (3.93-5.22) x10^6/uL Hgb (11.2-15.7) g/dL Hct (34.1-44.9) % MCV (79.4-94.8) fL MCH (25.6-32.2) pg MCHC (32.2-35.5) g/dL RDW (11.7-14.4) % Plt Count (182-369) x10^3/uL MPV (9.4-12.3) fL Gran % (34.0-71.1) % Immature Gran % (Auto) (0.001-0.429) % Nucleat RBC Rel Count (0.00-0.2) % Eos # (Auto) (0.04-0.36) x10^3/uL Immature Gran # (Auto) (0.001-0.031) x10^3u/L Absolute Lymphs (auto) (1.18-3.74) x10^3/uL Absolute Monos (auto) (0.24-0.86) x10^3/uL Absolute Nucleated RBC (0.00-0.012) x10^3u/L Lymphocytes % (19.3-51.7) % Monocytes % (4.7-12.5) % Eosinophils % (0.7-5.8) % Basophils % (0.1-1.2) % Absolute Granulocytes (1.56-6.13) x10^3/uL Basophils # (0.01-0.08) x10^3/uL PT 11.1 (9.4-12.5) SECONDS INR 1.02 (0.8-3.0) APTT 27.9 (25.1-36.5) SECONDS Sodium (135-145) mmol/L Potassium (3.5-5.1) mmol/L Chloride (98-107) mmol/L Carbon Dioxide (22-30) mmol/L Anion Gap (5-15) MEQ/L BUN (7-17) mg/dL Creatinine (0.52-1.04) mg/dL Estimated GFR ML/MIN Glucose (74-106) mg/dL POC Glucometer (74 to 106) mg/dL Lactic Acid (0.4-2.0) Calcium (8.4-10.2) mg/dL Magnesium 1.8 (1.6-2.3) mg/dL Total Bilirubin (0.2-1.3) mg/dL AST (14-36) U/L ALT (0-35) U/L Alkaline Phosphatase (38-126) U/L Troponin I < 0.012 (0.000-0.033) ng/mL Serum Total Protein (6.3-8.2) g/dL Albumin (3.5-5.0) g/dL Urine Color (Yellow) Urine Appearance (Clear) Urine pH (4.6-8.0) Ur Specific [place] (1.005-1.030) Urine Protein (Negative) Urine Glucose (UA) (Negative) mg/dL Urine Ketones (Negative) Urine Blood (Negative) Urine Nitrite (Negative) Urine Bilirubin (Negative) Urine Urobilinogen (0.2) mg/dL Ur Leukocyte Esterase (Negative) U Hyaline Cast (Auto) (0-2) /LPF Urine Microscopic RBC (0-5) /HPF Urine Microscopic WBC (0-5) /HPF Ur Epithelial Cells (None Seen) /HPF Urine Bacteria (None Seen) /HPF Urine Culture Reflexed (NO) 12/04/24 12/04/24 Range/Units 16:20 16:32 WBC (3.98-10.04) x10^3/uL RBC (3.93-5.22) x10^6/uL Hgb (11.2-15.7) g/dL Hct (34.1-44.9) % MCV (79.4-94.8) fL MCH (25.6-32.2) pg MCHC (32.2-35.5) g/dL RDW (11.7-14.4) % Plt Count (182-369) x10^3/uL MPV (9.4-12.3) fL Gran % (34.0-71.1) % Immature Gran % (Auto) (0.001-0.429) % Nucleat RBC Rel Count (0.00-0.2) % Eos # (Auto) (0.04-0.36) x10^3/uL Immature Gran # (Auto) (0.001-0.031) x10^3u/L Absolute Lymphs (auto) (1.18-3.74) x10^3/uL Absolute Monos (auto) (0.24-0.86) x10^3/uL Absolute Nucleated RBC (0.00-0.012) x10^3u/L Lymphocytes % (19.3-51.7) % Monocytes % (4.7-12.5) % Eosinophils % (0.7-5.8) % Basophils % (0.1-1.2) % Absolute Granulocytes (1.56-6.13) x10^3/uL Basophils # (0.01-0.08) x10^3/uL PT (9.4-12.5) SECONDS INR (0.8-3.0) APTT (25.1-36.5) SECONDS Sodium (135-145) mmol/L Potassium (3.5-5.1) mmol/L Chloride (98-107) mmol/L Carbon Dioxide (22-30) mmol/L Anion Gap (5-15) MEQ/L BUN (7-17) mg/dL Creatinine (0.52-1.04) mg/dL Estimated GFR ML/MIN Glucose (74-106) mg/dL POC Glucometer 91 (74 to 106) mg/dL Lactic Acid (0.4-2.0) Calcium (8.4-10.2) mg/dL Magnesium (1.6-2.3) mg/dL Total Bilirubin (0.2-1.3) mg/dL AST (14-36) U/L ALT (0-35) U/L Alkaline Phosphatase (38-126) U/L Troponin I (0.000-0.033) ng/mL Serum Total Protein (6.3-8.2) g/dL Albumin (3.5-5.0) g/dL Urine Color Yellow (Yellow) Urine Appearance Clear (Clear) Urine pH 5.5 (4.6-8.0) Ur Specific [place] 1.015 (1.005-1.030) Urine Protein Negative (Negative) Urine Glucose (UA) Negative (Negative) mg/dL Urine Ketones Negative (Negative) Urine Blood Moderate A (Negative) Urine Nitrite Negative (Negative) Urine Bilirubin Negative (Negative) Urine Urobilinogen 1.0 A (0.2) mg/dL Ur Leukocyte Esterase Moderate A (Negative) U Hyaline Cast (Auto) NONE SEEN (0-2) /LPF Urine Microscopic RBC 21-50 A (0-5) /HPF Urine Microscopic WBC 11-20 A (0-5) /HPF Ur Epithelial Cells Rare (None Seen) /HPF Urine Bacteria Few A (None Seen) /HPF Urine Culture Reflexed YES (NO) - Radiology Impressions Radiology Exams & Impressions: Radiology Procedures Category Date Time Status CHEST 1 VIEW (PORTABLE) Stat Exams 10/11/24 15:[address] ANGIOGRAPHY NECK [CT] Routine Exams 10/11/24 20:54 Ordered CTA HEAD W AND/OR WO CONTRAST [CT] Routine Exams 10/11/24 20:53 Ordered HEAD WITHOUT CONTRAST [CT] Stat Exams 10/11/24 15:54 Completed MRI BRAIN W & W/O CONTRAST [MRI] Routine Exams 10/11/24 20:53 Ordered Assessment/Plan (1) Orthostatic dizziness Current Visit: Yes Status: Acute Assessment & Plan: Already on meclizine prn. Received IV fluids. PT/OT eval. Check AM orthostatics. Code(s): R42 - DIZZINESS AND GIDDINESS (2) Lacunar infarction Current Visit: Yes Status: Acute Assessment & Plan: Already on antiplatelet therapy. Follow up official teleneuro report. Ordered MRI brain and CTA head/neck. Monitor on tele. Code(s): I63.81 - OTHER CEREB INFRC DUE TO OCCLS OR STENOSIS OF SMALL ARTERY (3) UTI (urinary tract infection) Current Visit: No Status: Acute Assessment & Plan: IV antibiotics. Follow culture results. Code(s): N39.0 - URINARY TRACT INFECTION, SITE NOT SPECIFIED (4) Mitral stenosis Current Visit: No Status: Acute Assessment & Plan: Follows with Dr. Barr. Has a chronic heart murmur. Code(s): I05.0 - RHEUMATIC MITRAL STENOSIS Telemedicine Encounter - Telemedicine Encounter Telemedicine Encounter: "The entirety of this encounter was performed via Telemedicine" This visit was performed using real-time audio and video connection between my location and thepatients locationwith the assistance of a surrogateat the patients location. Written or verbal consent was obtained from the patient/guardian to perform this visit [email or web address]. Any patient questions regarding the telemedicine interaction were answered.
[2024-10-11] MEDS ORDERED: ZOCOR 20MG ONE (21:23)
[2024-10-11] MEDS: MORPHINE SULFATE 2 MG INJ IV PRN (21:27)
[2024-10-11] MEDS: Ambien 10 MG PO SCH (21:27)
[2024-10-11] MEDS: Zofran 4 MG/2 ML VIAL IV PRN (21:27)
[2024-10-11] MEDS: ROCEPHIN 1 GM / 100 ML NaCl 1 GM/100 ML IVPB IV SCH (21:28)
[2024-10-11] MEDS: NEURONTIN PO SCH (21:35)
[2024-10-11] MEDS: BRILINTA PO SCH (21:35)
[2024-10-11] MEDS: NON-FORMULARY ITEM (Sacubitril/Valsartan [Entresto 24 Mg-26 Mg Tablet] 1 EACH Tablet) PO SCH (21:36)
[2024-10-11] MEDS: ZOCOR 20MG PO SCH (21:38)
[2024-10-11] MEDS ORDERED: NON-FORMULARY ITEM (Atorvastatin Calcium 20 MG Tab) PO SCH (22:00)
[2024-10-12] MEDS: NORCO 5/325 MG PO PRN
[2024-10-12 02:19] LABS: ANION GAP 8.8 MEQ/L (5-15); Calcium 8.3 mg/dL (8.4-10.2); Creatinine 1 0.8 mg/dL (0.52-1.04); EST GLOMERULAR FILTRATION RATE 73.1 ML/MIN
[2024-10-12 02:38] LABS: Absolute Neutrophil Ct (ANC) 2.97 x10^3/uL (1.56-6.13); BASOPHIL % 0.6 % (0.1-1.2); Basophil (Absolute #) 0.03 x10^3/uL (0.01-0.08); Eosinophil % 1.2 % (0.7-5.8); Eosinophil (Absolute #) 0.06 x10^3/uL (0.04-0.36); Hematocrit 31.8 % (34.1-44.9); Hemoglobin 10.5 g/dL (11.2-15.7); IMMATURE GRAN # 0.02 x10^3u/L (0.001-0.031); IMMATURE GRAN % 0.4 % (0.001-0.429); Lymphocyte (Absolute #) 1.29 x10^3/uL (1.18-3.74); Lymphocytes % 26.7 % (19.3-51.7); Mean Cell Volume 88.8 fL (79.4-94.8); Mean Corpuscular Hemoglobin 29.3 pg (25.6-32.2); Mean Platelet Volume 10.4 fL (9.4-12.3); Monocyte (Absolute #) 0.47 x10^3/uL (0.24-0.86); Monocytes % 9.7 % (4.7-12.5); Neutrophil % 61.4 % (34.0-71.1); Platelet Count 179 x10^3/uL (182-369); Red Blood Count 3.58 x10^6/uL (3.93-5.22); Red Cell Distribution Width 13.5 % (11.7-14.4); White Blood Count 4.8 x10^3/uL (3.98-10.04)
[2024-10-12] MEDS ORDERED: Protonix 20MG Tablet PO PRN (07:33)
--- NOTE | 2024-10-12 08:44 | XRAY ---
CLINICAL HISTORY: gen weakness, speech changes COMPARISON: None. TECHNIQUE: X-ray of the chest was performed in AP view. FINDINGS: Haziness is seen in the right lower zone. Aortic knuckle calcification Normal configuration of the mediastinum. The sage are normal in size and position. Possible cardiomegaly noted. Costophrenic and cardiophrenic angles are clear. Retrocardiac and retrosternal spaces are normal. The bony thorax is unremarkable. IMPRESSION: Haziness is seen in the right lower zone, would recommend clinical and lab correlation to rule out pulmonary infection. Possible cardiomegaly noted. Electronically Signed by: Cami Neves MD. (10/12/2024 08:39:00 EST)
[2024-10-12] MEDS: ECOTRIN 81 MG PO SCH (09:04)
[2024-10-12] MEDS: Toprol Xl 50 MG PO SCH (09:05)
[2024-10-12] MEDS: BRILINTA PO SCH (09:05)
[2024-10-12] MEDS: ENTRESTO 49 MG-51 MG TABLET PO SCH (09:05)
[2024-10-12] MEDS: Acidophilus TABLET PO SCH (09:05)
--- NOTE | 2024-10-12 10:08 | PCM.NOTE ---
Date and Time: 10/12/24 1001 Subjective Assessment: 10/12/24 is a 84 year old female with a history of hypertension, hyperlipidemia, mitral stenosis (and chronic heart murmur), CAD (s/p PCI, and follows with Dr. Barr). She presented to the ER on 10/11/24 by daughter after patient was having some difficulty word findings at [facility] prior to arrival. Patient reports she did not figure it out what to speak in her words were not right. [place] confused. Bystander thought patient was having low glucose and was given chocolate. Patient reports weakness all over and no other focal weakness. Does have some difficulty speech while in the ER but according to daughter this does happen when she gets anxious. Denies any chest pain, does have shortness of breath which she has chronically there and is not any worse than usual. Patient blood sugar was 96 on presentation in the ER. Per the ER physician, the patient had been scheduled for outpatient MRI brain and CTA head/neck. 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 Pt to have MRI of brain today. Orthostats this AM negative. US negative- antibiotics stopped. Pt denies any further concerns at this time. - Review of Systems Constitutional: No Fever, No Chills Eyes: No Symptoms Ears, Nose, & Throat: No Symptoms Respiratory: No Cough, No Short Of Breath Cardiac: No Chest Pain, No Edema, No Syncope Abdominal/Gastrointestinal: No Abdominal Pain, No Nausea, No Vomiting, No Diarrhea Genitourinary Symptoms: No Dysuria Musculoskeletal: No Back Pain, No Neck Pain Skin: No Rash Neurological: No Dizziness, No Focal Weakness, No Sensory Changes Psychological: No Symptoms Endocrine: No Symptoms Hematologic/Lymphatic: No Symptoms Immunological/Allergic: No Symptoms Objective Exam General Appearance: no apparent distress, alert Neurologic Exam: alert, oriented x 3, cooperative, industrial specialist II-XII nml as tested, normal mood/affect, nml cerebellar function, sensation nml, No motor deficits Skin Exam: normal color, warm, dry Eye Exam: PERRL, EOMI, eyes nml inspection Ears, Nose, Throat Exam: normal ENT inspection, pharynx normal, moist mucous membranes Neck Exam: normal inspection, non-tender, supple, full range of motion Respiratory Exam: normal breath sounds, lungs clear, No respiratory distress Cardiovascular Exam: regular rate/rhythm, normal heart sounds Gastrointestinal/Abdomen Exam: soft, No tenderness, No mass Extremity Exam: normal inspection, normal range of motion Back Exam: normal inspection, normal range of motion, No CVA tenderness, No vertebral tenderness Pelvic Exam: deferred Rectal Exam: deferred Objective Data Vital Signs: Vital Signs - 24 hr Temp Pulse Resp BP BP Pulse Ox 10/12/24 08:00 97.4 F 76 16 129/87 98 10/12/24 04:00 97.3 F 70 20 96/45 98 10/12/24 00:00 98 H 20 96 10/11/24 20:30 97.2 F 104 H 19 167/81 98 10/11/24 19:35 105 H 18 134/78 99 10/11/24 19:32 100 10/11/24 18:36 98 10/11/24 18:30 94 H 18 132/73 99 10/11/24 18:00 116 H 16 151/100 98 10/11/24 17:30 109 H 15 152/94 99 10/11/24 17:29 111 H 17 141/87 100 10/11/24 17:00 110 H 22 146/73 100 10/11/24 16:30 107 H 19 145/70 98 10/11/24 16:28 97 H 16 147/69 100 10/11/24 15:53 98 F 108 H 20 138/85 100 Pain Assessment - Last Documented Pain Intensity 6 Pain Scale Used 0-10 Pain Scale Intake and Output: Intake & Output 10/09/24 10/10/24 10/11/24 10/12/24 11:59 11:59 11:59 11:59 Intake Total 520 Output Total 200 Balance 320 Weight 56.6 kg Lab Results: Lab Results-Last 24 Hours 10/11/24 10/11/24 10/11/24 Range/Units 15:54 15:54 16:15 WBC 7.3 (3.98-10.04) x10^3/uL RBC 4.25 (3.93-5.22) x10^6/uL Hgb 12.5 (11.2-15.7) g/dL Hct 36.9 (34.1-44.9) % MCV 86.8 (79.4-94.8) fL MCH 29.4 (25.6-32.2) pg MCHC 33.9 (32.2-35.5) g/dL RDW 13.8 (11.7-14.4) % Plt Count 236 (182-369) x10^3/uL MPV 9.9 (9.4-12.3) fL Gran % 49.6 (34.0-71.1) % Immature Gran % (Auto) 0.4 (0.001-0.429) % Nucleat RBC Rel Count 0.0 (0.00-0.2) % Eos # (Auto) 0.17 (0.04-0.36) x10^3/uL Immature Gran # (Auto) 0.03 (0.001-0.031) x10^3u/L Absolute Lymphs (auto) 2.83 (1.18-3.74) x10^3/uL Absolute Monos (auto) 0.63 (0.24-0.86) x10^3/uL Absolute Nucleated RBC 0.00 (0.00-0.012) x10^3u/L Lymphocytes % 38.6 (19.3-51.7) % Monocytes % 8.6 (4.7-12.5) % Eosinophils % 2.3 (0.7-5.8) % Basophils % 0.5 (0.1-1.2) % Absolute Granulocytes 3.63 (1.56-6.13) x10^3/uL Basophils # 0.04 (0.01-0.08) x10^3/uL PT (9.4-12.5) SECONDS INR (0.8-3.0) APTT (25.1-36.5) SECONDS Sodium 139 (135-145) mmol/L Potassium 4.0 (3.5-5.1) mmol/L Chloride 108 H (98-107) mmol/L Carbon Dioxide 21 L (22-30) mmol/L Anion Gap 14.7 (5-15) MEQ/L BUN 14 (7-17) mg/dL Creatinine 0.87 (0.52-1.04) mg/dL Estimated GFR 66.1 ML/MIN Glucose 96 (74-106) mg/dL POC Glucometer (74 to 106) mg/dL Lactic Acid 1.7 (0.4-2.0) Calcium 9.3 (8.4-10.2) mg/dL Magnesium (1.6-2.3) mg/dL Total Bilirubin 1.20 (0.2-1.3) mg/dL AST 33 (14-36) U/L ALT 18 (0-35) U/L Alkaline Phosphatase 134 H (38-126) U/L Troponin I (0.000-0.033) ng/mL Serum Total Protein 7.0 (6.3-8.2) g/dL Albumin 4.2 (3.5-5.0) g/dL Urine Color (Yellow) Urine Appearance (Clear) Urine pH (4.6-8.0) Ur Specific Bayard (1.005-1.030) Urine Protein (Negative) Urine Glucose (UA) (Negative) mg/dL Urine Ketones (Negative) Urine Blood (Negative) Urine Nitrite (Negative) Urine Bilirubin (Negative) Urine Urobilinogen (0.2) mg/dL Ur Leukocyte Esterase (Negative) U Hyaline Cast (Auto) (0-2) /LPF Urine Microscopic RBC (0-5) /HPF Urine Microscopic WBC (0-5) /HPF Ur Epithelial Cells (None Seen) /HPF Urine Bacteria (None Seen) /HPF Urine Culture Reflexed (NO) 10/11/24 10/11/24 10/11/24 Range/Units 16:15 16:15 16:15 WBC (3.98-10.04) x10^3/uL RBC (3.93-5.22) x10^6/uL Hgb (11.2-15.7) g/dL Hct (34.1-44.9) % MCV (79.4-94.8) fL MCH (25.6-32.2) pg MCHC (32.2-35.5) g/dL RDW (11.7-14.4) % Plt Count (182-369) x10^3/uL MPV (9.4-12.3) fL Gran % (34.0-71.1) % Immature Gran % (Auto) (0.001-0.429) % Nucleat RBC Rel Count (0.00-0.2) % Eos # (Auto) (0.04-0.36) x10^3/uL Immature Gran # (Auto) (0.001-0.031) x10^3u/L Absolute Lymphs (auto) (1.18-3.74) x10^3/uL Absolute Monos (auto) (0.24-0.86) x10^3/uL Absolute Nucleated RBC (0.00-0.012) x10^3u/L Lymphocytes % (19.3-51.7) % Monocytes % (4.7-12.5) % Eosinophils % (0.7-5.8) % Basophils % (0.1-1.2) % Absolute Granulocytes (1.56-6.13) x10^3/uL Basophils # (0.01-0.08) x10^3/uL PT 11.1 (9.4-12.5) SECONDS INR 1.02 (0.8-3.0) APTT 27.9 (25.1-36.5) SECONDS Sodium (135-145) mmol/L Potassium (3.5-5.1) mmol/L Chloride (98-107) mmol/L Carbon Dioxide (22-30) mmol/L Anion Gap (5-15) MEQ/L BUN (7-17) mg/dL Creatinine (0.52-1.04) mg/dL Estimated GFR ML/MIN Glucose (74-106) mg/dL POC Glucometer (74 to 106) mg/dL Lactic Acid (0.4-2.0) Calcium (8.4-10.2) mg/dL Magnesium 1.8 (1.6-2.3) mg/dL Total Bilirubin (0.2-1.3) mg/dL AST (14-36) U/L ALT (0-35) U/L Alkaline Phosphatase (38-126) U/L Troponin I < 0.012 (0.000-0.033) ng/mL Serum Total Protein (6.3-8.2) g/dL Albumin (3.5-5.0) g/dL Urine Color (Yellow) Urine Appearance (Clear) Urine pH (4.6-8.0) Ur Specific Bayard (1.005-1.030) Urine Protein (Negative) Urine Glucose (UA) (Negative) mg/dL Urine Ketones (Negative) Urine Blood (Negative) Urine Nitrite (Negative) Urine Bilirubin (Negative) Urine Urobilinogen (0.2) mg/dL Ur Leukocyte Esterase (Negative) U Hyaline Cast (Auto) (0-2) /LPF Urine Microscopic RBC (0-5) /HPF Urine Microscopic WBC (0-5) /HPF Ur Epithelial Cells (None Seen) /HPF Urine Bacteria (None Seen) /HPF Urine Culture Reflexed (NO) 10/11/24 10/11/24 10/11/24 Range/Units 16:20 16:32 21:25 WBC (3.98-10.04) x10^3/uL RBC (3.93-5.22) x10^6/uL Hgb (11.2-15.7) g/dL Hct (34.1-44.9) % MCV (79.4-94.8) fL MCH (25.6-32.2) pg MCHC (32.2-35.5) g/dL RDW (11.7-14.4) % Plt Count (182-369) x10^3/uL MPV (9.4-12.3) fL Gran % (34.0-71.1) % Immature Gran % (Auto) (0.001-0.429) % Nucleat RBC Rel Count (0.00-0.2) % Eos # (Auto) (0.04-0.36) x10^3/uL Immature Gran # (Auto) (0.001-0.031) x10^3u/L Absolute Lymphs (auto) (1.18-3.74) x10^3/uL Absolute Monos (auto) (0.24-0.86) x10^3/uL Absolute Nucleated RBC (0.00-0.012) x10^3u/L Lymphocytes % (19.3-51.7) % Monocytes % (4.7-12.5) % Eosinophils % (0.7-5.8) % Basophils % (0.1-1.2) % Absolute Granulocytes (1.56-6.13) x10^3/uL Basophils # (0.01-0.08) x10^3/uL PT (9.4-12.5) SECONDS INR (0.8-3.0) APTT (25.1-36.5) SECONDS Sodium (135-145) mmol/L Potassium (3.5-5.1) mmol/L Chloride (98-107) mmol/L Carbon Dioxide (22-30) mmol/L Anion Gap (5-15) MEQ/L BUN (7-17) mg/dL Creatinine (0.52-1.04) mg/dL Estimated GFR ML/MIN Glucose (74-106) mg/dL POC Glucometer 91 (74 to 106) mg/dL Lactic Acid (0.4-2.0) Calcium (8.4-10.2) mg/dL Magnesium (1.6-2.3) mg/dL Total Bilirubin (0.2-1.3) mg/dL AST (14-36) U/L ALT (0-35) U/L Alkaline Phosphatase (38-126) U/L Troponin I 0.064 H* (0.000-0.033) ng/mL Serum Total Protein (6.3-8.2) g/dL Albumin (3.5-5.0) g/dL Urine Color Yellow (Yellow) Urine Appearance Clear (Clear) Urine pH 5.5 (4.6-8.0) Ur Specific Bayard 1.015 (1.005-1.030) Urine Protein Negative (Negative) Urine Glucose (UA) Negative (Negative) mg/dL Urine Ketones Negative (Negative) Urine Blood Moderate A (Negative) Urine Nitrite Negative (Negative) Urine Bilirubin Negative (Negative) Urine Urobilinogen 1.0 A (0.2) mg/dL Ur Leukocyte Esterase Moderate A (Negative) U Hyaline Cast (Auto) NONE SEEN (0-2) /LPF Urine Microscopic RBC 21-50 A (0-5) /HPF Urine Microscopic WBC 11-20 A (0-5) /HPF Ur Epithelial Cells Rare (None Seen) /HPF Urine Bacteria Few A (None Seen) /HPF Urine Culture Reflexed YES (NO) 10/12/24 10/12/24 10/12/24 Range/Units 01:41 01:41 01:41 WBC 4.8 (3.98-10.04) x10^3/uL RBC 3.58 L (3.93-5.22) x10^6/uL Hgb 10.5 L (11.2-15.7) g/dL Hct 31.8 L (34.1-44.9) % MCV 88.8 (79.4-94.8) fL MCH 29.3 (25.6-32.2) pg MCHC 33.0 (32.2-35.5) g/dL RDW 13.5 (11.7-14.4) % Plt Count 179 L (182-369) x10^3/uL MPV 10.4 (9.4-12.3) fL Gran % 61.4 (34.0-71.1) % Immature Gran % (Auto) 0.4 (0.001-0.429) % Nucleat RBC Rel Count 0.0 (0.00-0.2) % Eos # (Auto) 0.06 (0.04-0.36) x10^3/uL Immature Gran # (Auto) 0.02 (0.001-0.031) x10^3u/L Absolute Lymphs (auto) 1.29 (1.18-3.74) x10^3/uL Absolute Monos (auto) 0.47 (0.24-0.86) x10^3/uL Absolute Nucleated RBC 0.00 (0.00-0.012) x10^3u/L Lymphocytes % 26.7 (19.3-51.7) % Monocytes % 9.7 (4.7-12.5) % Eosinophils % 1.2 (0.7-5.8) % Basophils % 0.6 (0.1-1.2) % Absolute Granulocytes 2.97 (1.56-6.13) x10^3/uL Basophils # 0.03 (0.01-0.08) x10^3/uL PT (9.4-12.5) SECONDS INR (0.8-3.0) APTT (25.1-36.5) SECONDS Sodium 138 (135-145) mmol/L Potassium 4.0 (3.5-5.1) mmol/L Chloride 112 H (98-107) mmol/L Carbon Dioxide 22 (22-30) mmol/L Anion Gap 8.8 (5-15) MEQ/L BUN 13 (7-17) mg/dL Creatinine 0.80 (0.52-1.04) mg/dL Estimated GFR 73.1 ML/MIN Glucose 95 (74-106) mg/dL POC Glucometer (74 to 106) mg/dL Lactic Acid (0.4-2.0) Calcium 8.3 L (8.4-10.2) mg/dL Magnesium (1.6-2.3) mg/dL Total Bilirubin (0.2-1.3) mg/dL AST (14-36) U/L ALT (0-35) U/L Alkaline Phosphatase (38-126) U/L Troponin I 0.064 H* (0.000-0.033) ng/mL Serum Total Protein (6.3-8.2) g/dL Albumin (3.5-5.0) g/dL Urine Color (Yellow) Urine Appearance (Clear) Urine pH (4.6-8.0) Ur Specific Bayard (1.005-1.030) Urine Protein (Negative) Urine Glucose (UA) (Negative) mg/dL Urine Ketones (Negative) Urine Blood (Negative) Urine Nitrite (Negative) Urine Bilirubin (Negative) Urine Urobilinogen (0.2) mg/dL Ur Leukocyte Esterase (Negative) U Hyaline Cast (Auto) (0-2) /LPF Urine Microscopic RBC (0-5) /HPF Urine Microscopic WBC (0-5) /HPF Ur Epithelial Cells (None Seen) /HPF Urine Bacteria (None Seen) /HPF Urine Culture Reflexed (NO) 10/12/24 Range/Units 07:30 WBC (3.98-10.04) x10^3/uL RBC (3.93-5.22) x10^6/uL Hgb (11.2-15.7) g/dL Hct (34.1-44.9) % MCV (79.4-94.8) fL MCH (25.6-32.2) pg MCHC (32.2-35.5) g/dL RDW (11.7-14.4) % Plt Count (182-369) x10^3/uL MPV (9.4-12.3) fL Gran % (34.0-71.1) % Immature Gran % (Auto) (0.001-0.429) % Nucleat RBC Rel Count (0.00-0.2) % Eos # (Auto) (0.04-0.36) x10^3/uL Immature Gran # (Auto) (0.001-0.031) x10^3u/L Absolute Lymphs (auto) (1.18-3.74) x10^3/uL Absolute Monos (auto) (0.24-0.86) x10^3/uL Absolute Nucleated RBC (0.00-0.012) x10^3u/L Lymphocytes % (19.3-51.7) % Monocytes % (4.7-12.5) % Eosinophils % (0.7-5.8) % Basophils % (0.1-1.2) % Absolute Granulocytes (1.56-6.13) x10^3/uL Basophils # (0.01-0.08) x10^3/uL PT (9.4-12.5) SECONDS INR (0.8-3.0) APTT (25.1-36.5) SECONDS Sodium (135-145) mmol/L Potassium (3.5-5.1) mmol/L Chloride (98-107) mmol/L Carbon Dioxide (22-30) mmol/L Anion Gap (5-15) MEQ/L BUN (7-17) mg/dL Creatinine (0.52-1.04) mg/dL Estimated GFR ML/MIN Glucose (74-106) mg/dL POC Glucometer (74 to 106) mg/dL Lactic Acid (0.4-2.0) Calcium (8.4-10.2) mg/dL Magnesium (1.6-2.3) mg/dL Total Bilirubin (0.2-1.3) mg/dL AST (14-36) U/L ALT (0-35) U/L Alkaline Phosphatase (38-126) U/L Troponin I 0.045 H* (0.000-0.033) ng/mL Serum Total Protein (6.3-8.2) g/dL Albumin (3.5-5.0) g/dL Urine Color (Yellow) Urine Appearance (Clear) Urine pH (4.6-8.0) Ur Specific Bayard (1.005-1.030) Urine Protein (Negative) Urine Glucose (UA) (Negative) mg/dL Urine Ketones (Negative) Urine Blood (Negative) Urine Nitrite (Negative) Urine Bilirubin (Negative) Urine Urobilinogen (0.2) mg/dL Ur Leukocyte Esterase (Negative) U Hyaline Cast (Auto) (0-2) /LPF Urine Microscopic RBC (0-5) /HPF Urine Microscopic WBC (0-5) /HPF Ur Epithelial Cells (None Seen) /HPF Urine Bacteria (None Seen) /HPF Urine Culture Reflexed (NO) Radiology Exams: Radiology Procedures Category Date Time Status CHEST 1 VIEW (PORTABLE) Stat Exams 10/11/24 15:56 Completed HEAD WITHOUT CONTRAST [CT] Stat Exams 10/11/24 15:54 Completed MRI BRAIN W & W/O CONTRAST [MRI] Routine Exams 10/12/24 20:53 Ordered Assessment/Plan (1) TIA (transient ischemic attack) Current Visit: Yes Status: Resolved Assessment & Plan: - lipid panel - CT head reviewed - MRI brain pending - PT/OT - neurology consult in ER - Continue ASA, Brinlinta - increased statin to 80mg daily - PT/OT - tele - talking and eating fine no need for ST at this time. Code(s): G45.9 - TRANSIENT CEREBRAL ISCHEMIC ATTACK, UNSPECIFIED (2) Orthostatic dizziness Current Visit: Yes Status: Acute Assessment & Plan: - resolved - orthostats negative Code(s): R42 - DIZZINESS AND GIDDINESS (3) UTI (urinary tract infection) Current Visit: No Status: Acute Assessment & Plan: - UA reviewed - UC negative - ceftriaxone stopped - CBC, CMP reviewed Code(s): N39.0 - URINARY TRACT INFECTION, SITE NOT SPECIFIED (4) Lacunar infarction Current Visit: Yes Status: Chronic Assessment & Plan: - old as seen on CT results - MRI pending today - CT head: Impression: 1. Bilateral basal ganglia remote lacunar infarcts. 2. Partial opacification left mastoid air cells presumed inflammatory. 3. No acute intracranial abnormalities. Code(s): I63.81 - OTHER CEREB INFRC DUE TO OCCLS OR STENOSIS OF SMALL ARTERY (5) CHF (congestive heart failure) Current Visit: Yes Status: Chronic Assessment & Plan: I- Chronic not in acute exacerbation - Echo 05/22/24 shows EF 45-50% - Follows Dr. Barr - Continue Entreso, metoprolol - CXR shows haziness of RLL- procal for further eval ordered - left and right heart failure per old echo results reviewed Code(s): I50.9 - HEART FAILURE, UNSPECIFIED (6) Murmur, cardiac Current Visit: Yes Status: Chronic Assessment & Plan: - chronic systolic and diastolic mitral heart murmur as pt has mitral valve tashi nosis and mitral regurgitation VTE: Brinlita PPI: Protonix Next of Kin: Child- Lisa Gifford D/C plan: tomorrow Code status: SCO/DNR Code(s): R01.1 - CARDIAC MURMUR, UNSPECIFIED
[2024-10-12 11:16] LABS: PROCALCITONIN 0.127 ng/mL (0.030-0.080); TSH, 3RD Generation 1.12 mIU/L (0.470-4.680)
[2024-10-12] MEDS ORDERED: ZITHROMAX IV*** 0 MG in Sodium Chloride 0.9% 250 ML 250 ML IV SCH (13:30)
--- NOTE | 2024-10-12 13:49 | XRAY ---
Indication: Ataxia. Slurred speech. Sagittal, coronal, and axial MRI brain performed using pre and post T1, T2, FLAIR, diffusion, and ADC sequences. 10 cc Dotarem contrast used. Comparison: None Age-appropriate global atrophy and minimal periventricular degenerative micro-ischemia bilaterally. Basal ganglia demonstrates remote lacunar infarcts, right greater than left. Diffusion images negative for restricted signal. No acute intracranial hemorrhage, abnormal extra-axial fluid collection, or mass effect. Following gadolinium, there is no abnormal enhancing intra or extra-axial mass. Fourth ventricle is midline without hydrocephalus. 7/8 cranial nerve complex bilaterally symmetric. Normal flow void signal within the major intracerebral circulation. Normal appearing craniocervical junction and sella turcica. Paranasal sinuses are clear. Impression: 1. Atrophy and degenerative micro-ischemia within normal limits. Remote bilateral basal ganglial lacunar infarcts. 2. No acute intracranial abnormalities or evidence for evolving large vessel territorial stroke. 3. Negative contrast exam.
[2024-10-12] MEDS: Zithromax 500 MG/ 250 ML NaCl Premix 500 MG/250 ML IVPB IV SCH (14:01)
[2024-10-12] MEDS: BENADRYL 50 MG/ML IV ONE (14:33)
--- NOTE | 2024-10-12 14:34 | PCM.NOTE ---
Pt developed itching and pain when IV azithromycin started. She was yelling out in pain and medication stopped by nurse. IV flushed w/o concern. Azithromycin stopped and added to allergy list. Will continue ceftriaxone and start doxycycline. Benadryl 25mg IV x1 gave for burning and itching pain in arm.
[2024-10-12] MEDS: BENADRYL 50 MG/ML IM ONE (14:35)
[2024-10-12] MEDS: VIBRAMYCIN 100 MG*** 100 MG in Dextrose 5%/Water IV Soln. 100ML PLUS BAG 100 ML IV SCH (14:39)
--- NOTE | 2024-10-12 15:38 | PCM.NOTE ---
Spoke with pt's floor plan adjuster Dr. Barr about pt's elevated trops. He feels trop elevation is likely r/t demand ischemia from pneumonia. Since pt denies any further CP and EKG stable can f/u OP. He has no further recommendations at this time.
--- NOTE | 2024-10-12 21:21 | PCM.CONS ---
History of Present Illness - Date of Consult Date of Encounter: 10/12/24 [employer] Salesperson: KUMAR MARLEY MD Requesting Provider: Attending Provider: NEHEMIAS SOL MD Primary Care Provider: PCP: ANNEMARIE ISSA - Consult Narrative Reason for Consult: Elevated troponin-I HPI: Patient is a 84F who denies fevers, chills, nausea, vomiting, diarrhea, syncope, presyncope, dysphagia,odynophagia, orthopnea, paroxysmal nocturnal dyspnea, shortness of breath, chest pain, refluxsymptoms, belly pain, dysuria, hematuria, melena, hematochezia, seizures, paralysis, or other neurological changes. All other systems have been reviewed and are negative. cc:: The requesting physician will be sent a copy of the consult. - Past Medical History Past Medical History: Yes Neurological History: No Pertinent History ENT History: No Pertinent History Cardiac History: Coronary Artery Disease, High Cholesterol, Hypertension Respiratory History: No Pertinent History Endocrine Medical History: No Pertinent History Musculoskelatal History: Arthritis GI Medical History: No Pertinent History History: No Pertinent History Pyscho-Social History: Anxiety Reproductive Disorders: No Pertinent History Comment: detaching retina but pt can't remember which eye but she thinks it is the Right eye - Past Surgical History Past Surgical History: Yes Neuro Surgical History: No Pertinent History Cardiac History: Cardiac Catheterization, Cardiac Stent, Vascular Surgery, Other Respiratory Surgery: No Pertinent History GI Surgical History: Appendectomy, Cholecystectomy Genitourinary Surgical Hx: No Pertinent History Musculskeletal Surgical Hx: No Pertinent History, Other Female Surgical History: Hysterectomy Other Surgical History: valve clips - Social History Smoking Status: Never smoker Exposure to second hand smoke: Yes Alcohol: None Drug Use: none - Social Determinants of Health Will the patient participate in the screening: Yes Do you worry about a steady place to live?: No Do you have any problems with any of the following?: No known problems In the past 12 months,have you had to go without utilities?: No Have you or anyone in your house had to go without enough: No Transportation Issues: No Has anyone in your support network made you feel unsafe?: No Does the patient want assistance with any of the above?: No Medications & Allergies Home Medications: Home Medication List Aspirin EC 81 mg [Ecotrin 81 mg] 81 mg PO DAILY 05/22/24 [History Confirmed 10/11/24] Atorvastatin Calcium [Lipitor 20MG Tablet] 20 mg PO HS 05/22/24 [History Confirmed 10/11/24] Gabapentin [Neurontin ] 300 mg PO HS 05/22/24 [History Confirmed 10/11/24] Metoprolol Succinate 50 mg [Toprol Xl 50 MG] 50 mg PO DAILY 05/22/24 [History Confirmed 10/11/24] Omeprazole 20 mg PO DAILY PRN PRN 05/22/24 [History Confirmed 10/11/24] Sacubitril/Valsartan [Entresto 24 mg-26 mg Tablet] 1 each PO Q12H 05/22/24 [History Confirmed 10/11/24] Ticagrelor [Brilinta] 90 mg PO Q12H 05/22/24 [History Confirmed 10/11/24] Zolpidem Tartrate 10 mg [Ambien 10 MG] 10 mg PO HS 05/22/24 [History Confirmed 10/11/24] Meclizine HCl 25 mg [Antivert 25 mg] 12.5 mg PO QID PRN PRN 25 Days #100 tablet 05/24/24 [Rx Confirmed 10/11/24] Allergies/Adverse Reactions: Allergies Allergy/AdvReac Type Severity Reaction Status Date / Time azithromycin Allergy Itching Verified 10/12/24 14:27 Exam - Vitals Vital Signs: Vital Signs - 24 hr Temp Pulse Resp BP Pulse Ox 10/12/24 20:00 97.7 F 71 18 96/50 96 10/12/24 16:41 98 10/12/24 16:00 98.9 F 85 18 112/55 96 10/12/24 11:43 98.9 F 74 18 117/56 98 10/12/24 08:00 97.4 F 76 16 129/87 98 10/12/24 04:00 97.3 F 70 20 96/45 98 10/12/24 00:00 98 H 20 96 SpO2: 96 Results Vital Signs: Vital Signs - 24 hr Temp Pulse Resp BP Pulse Ox 10/12/24 20:00 97.7 F 71 18 96/50 96 10/12/24 16:41 98 10/12/24 16:00 98.9 F 85 18 112/55 96 10/12/24 11:43 98.9 F 74 18 117/56 98 10/12/24 08:00 97.4 F 76 16 129/87 98 10/12/24 04:00 97.3 F 70 20 96/45 98 10/12/24 00:00 98 H 20 96 Pain Assessment - Last Documented Pain Intensity 5 Pain Scale Used 0-10 Pain Scale Intake and Output: Intake & Output 10/10/24 10/11/24 10/12/24 10/13/24 11:59 11:59 11:59 11:59 Intake Total 520 340 Output Total 200 Balance 320 340 Weight 56.6 kg LAB: I have reviewed the Labs in [facility]. Radiology Exams: Radiology Procedures Category Date Time Status CHEST 1 VIEW (PORTABLE) Stat Exams 10/11/24 15:56 Completed HEAD WITHOUT CONTRAST [CT] Stat Exams 10/11/24 15:54 Completed MRI BRAIN W & W/O CONTRAST [MRI] Routine Exams 10/12/24 20:53 Completed CXR (AP) 10/11/2024: Haziness is seen in the right lower zone, would recommend clinical and lab correlation to rule out pulmonary infection. Possible cardiomegaly noted. Head CT without contrast 10/11/2024: 1. Bilateral basal ganglia remote lacunar infarcts. 2. Partial opacification left mastoid air cells presumed inflammatory. 3. No acute intracranial abnormalities. Brain MRI with and without contrast 10/11/2024: 1. Atrophy and degenerative micro-ischemia within normal limits. Remote bilateral basal ganglial lacunar infarcts. 2. No acute intracranial abnormalities or evidence for evolving large vessel territorial stroke. 3. Negative contrast exam. TTE 05/22/2024: 1) MILD CONCENTRIC LEFT VENTRICULAR HYPERTROPHY. 2) MILD LV SYSTOLIC DYSFUNCTION. LVEF 45-50%. 3) MITRAL VALVE CLIPS NOTED ON THE MITRAL VALVE. 4) ECHOGENIC HEART SIZE NOTED. 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 6) MILD MITRAL STENOSIS DUE TO MITRAL CLIPS (WITH AN ACCEPTABLE RESULT). 7) MODERATE MITRAL REGURGITATION, MILD TRICUSPID REGURGITATION, AND MILD AORTIC INSUFFICIENCY. 8) CALCIFIC ATHEROSCLEROSIS WITH MOST LIKELY MILD AORTIC STENOSIS Holter Monitor, 72 hour starting 05/22/2024: 1) NORMAL SINUS RHYTHM. 2) OCCASIONAL PACs, RARE ATRIAL COUPLETS, AND 17 EPISODES OF PAROXYSMAL ATRIAL TACHYARRHYTHMIA WITH THE LONGEST CONSISTING OF 10 BEATS WITH AVERAGE RATE OF 129 BEATS PER MINUTE. 3) RARE PVCs. Tracing 1 Attestation: I have reviewed this EKG and interpreted as documented below. EKG Narrative: ECGs 10/12/2024: NSR at [address] and T wave changes. : NSR at 74 bpm. Normal ECG. Multi-Disciplinary Progress Notes: Multi-Disciplinary Progress Notes 10/12/24 16:19 Occupational Therapy Note by Christiano (L#[id number])Esha OT attempted evaluation at 14:15; however, unable to complete due to patient's adverse reaction to antibiotic. She was crying while reporting severe pain in r ight arm into shoulder; nurse was bedside to address. OT will attempt back as appropriate. Initialized on 10/12/24 16:19 - END OF NOTE 10/12/24 14:32 Physical Therapy Note by Bert (L [id number])Sarah PT attempted to return for ambulation this afternoon to assess for dizziness with mobility following evaluation this AM. Patient was initially off the floor during first attempt, getting cleaned up with staff for second attempt and in significant pain from IV third attempt. Nursing was assisting patient at time of third attempt. PT to check on patient again tomorrow. Initialized on 10/12/24 14:32 - END OF NOTE Assessment & Plan (1) Elevated troponin Current Visit: Yes Status: Acute Assessment & Plan: Presentation is not consistent with acute coronary syndrome. This represents demand ischemia in the setting of her urinary tract infection/pneumonia. Code(s): R79.89 - OTHER SPECIFIED ABNORMAL FINDINGS OF BLOOD CHEMISTRY (2) Atherosclerosis of coronary artery without angina pectoris Current Visit: Yes Status: Acute Assessment & Plan: S/P PCI one year ago. No symptoms of angina since the coronary intervention. Continue aspirin, Brilinta, metoprolol, and high intensity dose of atorvastatin. Follow-up with her director of distance learning, Dr. Barr. Code(s): I25.10 - ATHSCL HEART DISEASE OF [place] CORONARY ARTERY W/O ANG PCTRS (3) TIA (transient ischemic attack) Current Visit: Yes Status: Resolved Assessment & Plan: As per primary service/neurology. Code(s): G45.9 - TRANSIENT CEREBRAL ISCHEMIC ATTACK, UNSPECIFIED - Encounter Encounter: The entirety of this encounter was performed via Telemedicine using audio and visual. Permission granted by patient for this type of encounter. Kumar Marley MD [facility] [phone]
[2024-10-12] MEDS ORDERED: ROCEPHIN 1 GM / 100 ML NaCl 1 GM/100 ML IVPB IV SCH (22:00)
[2024-10-13 04:49] LABS: Hematocrit 29.5 % (34.1-44.9); Hemoglobin 9.8 g/dL (11.2-15.7); Mean Cell Volume 88.1 fL (79.4-94.8); Mean Corpuscular Hemoglobin 29.3 pg (25.6-32.2); Mean Corpuscular Hgb Concent. 33.2 g/dL (32.2-35.5); Mean Platelet Volume 9.8 fL (9.4-12.3); Platelet Count 155 x10^3/uL (182-369); Red Blood Count 3.35 x10^6/uL (3.93-5.22); Red Cell Distribution Width 14.1 % (11.7-14.4); White Blood Count 3.8 x10^3/uL (3.98-10.04)
[2024-10-13 05:04] LABS: ALBUMIN 2.8 g/dL (3.5-5.0); ANION GAP 6.9 MEQ/L (5-15); BILIRUBIN,TOTAL 0.3 mg/dL (0.2-1.3); Calcium 8.3 mg/dL (8.4-10.2); Creatinine 1 1.09 mg/dL (0.52-1.04); EST GLOMERULAR FILTRATION RATE 50.4 ML/MIN; Potassium 3.7 mmol/L (3.5-5.1); Total Protein 5.2 g/dL (6.3-8.2)
--- NOTE | 2024-10-13 07:21 | PCM.NOTE ---
Date and Time: 10/13/24715 Subjective Assessment: is a 84 year old female with a pmhx of HTN, HLD, mitral stenosis (and chronic heart murmur), CAD (s/p PCI, and follows with Dr. Barr) who presented to ED on 10/11/24 after experiencing and episode of aphasia. Patient reported she was at [employer] and was having difficulty finding her word and felt confused. Bystander thought she may have been experiencing a low glucose level and was provided chocolate with no resolve. Patient reports weakness all over and no other focal weakness. Does have some difficulty speech while in the ER but according to daughter this does happen when she gets anxious. Patient blood sugar was 96 on presentation in the ER. Per the ER physician, the patient had been scheduled for outpatient MRI brain and CTA head/neck. Tele-neurology consulted and recommended MRI of the brain which showed no acute intracranial abnormalities. Remote bilateral basal ganglial lacunar infarct noted. Orthostats negative. CXR showing haziness to the right lower zone, procal elevated at 0.127. Patient started on ceftriaxone and azithromycin - reaction to azithromycin which was d/cd and replaced with doxycycline. Ucult NGTD. Objective Data Vital Signs: Vital Signs - 24 hr Temp Pulse Resp BP Pulse Ox 10/13/24 04:00 97.2 F 75 16 138/63 96 10/12/24 23:40 97.7 F 73 18 109/55 96 10/12/24 23:37 96 10/12/24 20:00 97.7 F 71 18 96/50 96 10/12/24 16:41 98 10/12/24 16:00 98.9 F 85 18 112/55 96 10/12/24 11:43 98.9 F 74 18 117/56 98 10/12/24 08:00 97.4 F 76 16 129/87 98 Pain Assessment - Last Documented Pain Intensity 5 Pain Scale Used 0-10 Pain Scale Intake and Output: Intake & Output 10/10/24 10/11/24 10/12/24 10/13/24 11:59 11:59 11:59 11:59 Intake Total 520 838 Output Total 200 Balance 320 838 Weight 56.6 kg Lab Results: Lab Results-Last 24 Hours 10/12/24 10/12/24 10/13/24 Range/Units 07:30 07:30 04:40 WBC 3.8 L (3.98-10.04) x10^3/uL RBC 3.35 L (3.93-5.22) x10^6/uL Hgb 9.8 L (11.2-15.7) g/dL Hct 29.5 L (34.1-44.9) % MCV 88.1 (79.4-94.8) fL MCH 29.3 (25.6-32.2) pg MCHC 33.2 (32.2-35.5) g/dL RDW 14.1 (11.7-14.4) % Plt Count 155 L (182-369) x10^3/uL MPV 9.8 (9.4-12.3) fL Sodium (135-145) mmol/L Potassium (3.5-5.1) mmol/L Chloride (98-107) mmol/L Carbon Dioxide (22-30) mmol/L Anion Gap (5-15) MEQ/L BUN (7-17) mg/dL Creatinine (0.52-1.04) mg/dL Estimated GFR ML/MIN Glucose (74-106) mg/dL Calcium (8.4-10.2) mg/dL Total Bilirubin (0.2-1.3) mg/dL AST (14-36) U/L ALT (0-35) U/L Alkaline Phosphatase (38-126) U/L Troponin I 0.045 H* (0.000-0.033) ng/mL Serum Total Protein (6.3-8.2) g/dL Albumin (3.5-5.0) g/dL Triglycerides 56 (30-150) mg/dL Cholesterol 118 (50-200) mg/dL LDL Cholesterol 72 (30-100) mg/dL HDL Cholesterol 37 L (40-60) mg/dL Heart Disease Risk Ratio 3.0 Procalcitonin 0.127 H (0.030-0.080) ng/mL TSH 3rd Generation 1.120 (0.470-4.680) mIU/L 10/13/24 Range/Units 04:40 WBC (3.98-10.04) x10^3/uL RBC (3.93-5.22) x10^6/uL Hgb (11.2-15.7) g/dL Hct (34.1-44.9) % MCV (79.4-94.8) fL MCH (25.6-32.2) pg MCHC (32.2-35.5) g/dL RDW (11.7-14.4) % Plt Count (182-369) x10^3/uL MPV (9.4-12.3) fL Sodium 137 (135-145) mmol/L Potassium 3.7 (3.5-5.1) mmol/L Chloride 109 H (98-107) mmol/L Carbon Dioxide 25 (22-30) mmol/L Anion Gap 6.9 (5-15) MEQ/L BUN 16 (7-17) mg/dL Creatinine 1.09 H (0.52-1.04) mg/dL Estimated GFR 50.4 ML/MIN Glucose 100 (74-106) mg/dL Calcium 8.3 L (8.4-10.2) mg/dL Total Bilirubin 0.30 (0.2-1.3) mg/dL AST 24 (14-36) U/L ALT 13 (0-35) U/L Alkaline Phosphatase 92 (38-126) U/L Troponin I (0.000-0.033) ng/mL Serum Total Protein 5.2 L (6.3-8.2) g/dL Albumin 2.8 L (3.5-5.0) g/dL Triglycerides (30-150) mg/dL Cholesterol (50-200) mg/dL LDL Cholesterol (30-100) mg/dL HDL Cholesterol (40-60) mg/dL Heart Disease Risk Ratio Procalcitonin (0.030-0.080) ng/mL TSH 3rd Generation (0.470-4.680) mIU/L Radiology Exams: Radiology Procedures Category Date Time Status CHEST 1 VIEW (PORTABLE) Stat Exams 10/11/24 15:56 Completed HEAD WITHOUT CONTRAST [CT] Stat Exams 10/11/24 15:54 Completed MRI BRAIN W & W/O CONTRAST [MRI] Routine Exams 10/12/24 20:53 Completed Multi-Disciplinary Progress Notes: Multi-Disciplinary Progress Notes 10/12/24 16:19 Occupational Therapy Note by Christiano (L#[id number])Esha OT attempted evaluation at 14:15; however, unable to complete due to patient's adverse reaction to antibiotic. She was crying while reporting severe pain in right arm into shoulder; nurse was bedside to address. OT will attempt back as appropriate. Initialized on 10/12/24 16:19 - END OF NOTE 10/12/24 14:32 Physical Therapy Note by Bert (L [id number])Sarah PT attempted to return for ambulation this afternoon to assess for dizziness with mobility following evaluation this AM. Patient was initially off the floor during first attempt, getting cleaned up with staff for second attempt and in si gnificant pain from IV third attempt. Nursing was assisting patient at time of third attempt. PT to check on patient again tomorrow. Initialized on 10/12/24 14:32 - END OF NOTE Assessment/Plan (1) TIA (transient ischemic attack) Current Visit: Yes Status: Resolved Assessment & Plan: - lipid panel showing LDL at 72 - continue atorvastatin at 80mg daily -Continue ASA/Brinlinta - CT head reviewed showing no acute intracranial abnormalities - Bilateral basal ganglia remote lacunar infarcts - PT/OT - neurology consulted in ED with recs for MRI -MRI brain reviewed with no acute findings.Re-identifies remote bilateral basal ganglial lucunar infarct. - Continue ASA, Brinlinta - PT/OT - tele - talking and eating fine no need for ST at this time -TSH WNL Code(s): G45.9 - TRANSIENT CEREBRAL ISCHEMIC ATTACK, UNSPECIFIED (2) UTI (urinary tract infection) Current Visit: No Status: Acute Assessment & Plan: -Ucult/UA reviewed, no growth on final culture Code(s): N39.0 - URINARY TRACT INFECTION, SITE NOT SPECIFIED (3) Pneumonia Current Visit: Yes Status: Acute Assessment & Plan: -CXR reviewed from 10/11 with haziness is seen in the right lower zone -Procal elevated at 0.127 -Ceftriaxone and azithromycin started initially -reaction to azithromycin - replaced with doxycycline Code(s): J18.9 - PNEUMONIA, UNSPECIFIED ORGANISM (4) Orthostatic dizziness Current Visit: Yes Status: Acute Assessment & Plan: - resolved - orthostats negative Code(s): R42 - DIZZINESS AND GIDDINESS (5) CHF (congestive heart failure) Current Visit: Yes Status: Chronic Assessment & Plan: - UA reviewed - UC NGTD will continue to follow - CBC, CMP reviewed -Cardiology note reviewed, agree with plan Code(s): I50.9 - HEART FAILURE, UNSPECIFIED (6) Lacunar infarction Current Visit: Yes Status: Chronic Assessment & Plan: - CT reviewed as stated above - MRI reviewed, see above -see plan for TIA Code(s): I63.81 - OTHER CEREB INFRC DUE TO OCCLS OR STENOSIS OF SMALL ARTERY (7) Murmur, cardiac Current Visit: Yes Status: Chronic Assessment & Plan: - chronic systolic and diastolic mitral heart murmur as pt has mitral valve stenosis and mitral regurgitation Code(s): R01.1 - CARDIAC MURMUR, UNSPECIFIED (8) Atherosclerosis of coronary artery without angina pectoris Current Visit: Yes Status: Acute Assessment & Plan: -Reviewed cardiac consult note -appreciate recs - S/P PCI one year ago -No current symptoms of angina - Continue home meds aspirin, Brilinta, metoprolol, and high intensity dose of atorvastatin. -Patient to follow-up OP with her brick and block mason, Dr. Barr as scheduled Code(s): I25.10 - ATHSCL HEART DISEASE OF [place] CORONARY ARTERY W/O ANG PCTRS (9) Elevated troponin Current Visit: Yes Status: Acute Assessment & Plan: -Reviewed cardiology note, troponin elevation most likely demand ischemia secondary pneumonia VTE: Brinlita PPI: Protonix Next of Kin: Child- Lisa Gifford D/C plan: tomorrow Code status: SCO/DNR Code(s): R79.89 - OTHER SPECIFIED ABNORMAL FINDINGS OF BLOOD CHEMISTRY
[2024-10-13 09:01] VITALS: RESP 17
[2024-10-13] MEDS: LIPITOR 40MG PO SCH (09:44)
[2024-10-13] MEDS: ROCEPHIN 1 GM / 100 ML NaCl 1 GM/100 ML IVPB IV SCH (09:45)
[2024-10-13 12:40] VITALS: BP 150/72; PULSE 92; TEMP 98; O2SAT 98
--- NOTE | 2024-10-13 14:04 | PCM.DS ---
Discharge Summary Date of Admission: 10/11/24 20:05 Date of Discharge: 10/13/24 Admitting Physician: NEHEMIAS SOL MD Primary Care Provider: ANNEMARIE ISSA Allergies Allergies azithromycin Allergy (Verified 10/12/24 14:27) Itching and pain with IV med Hospital Summary - Hospital Course Hospital Course: is a 84 year old female with a pmhx of HTN, HLD, mitral stenosis (and chronic heart murmur), CAD (s/p PCI, and follows with Dr. Barr) who presented to ED on 10/11/24 after experiencing and episode of aphasia. Patient reported she was at [employer] and was having difficulty finding her word and felt confused. Bystander thought she may have been experiencing a low glucose level and was provided chocolate with no resolve. Patient reports weakness all over and no other focal weakness. Does have some difficulty speech while in the ER but according to daughter this does happen when she gets anxious. Patient blood sugar was 96 on presentation in the ER. Per the ER physician, the patient had been scheduled for outpatient MRI brain and CTA head/neck. Tele-neurology consulted and recommended MRI of the brain which showed no acute intracranial abnormalities. Remote bilateral basal ganglial lacunar infarct noted. Orthostats negative. CXR showing haziness to the right lower zone, procal elevated at 0.127. Patient started on ceftriaxone and azithromycin - reaction to azithromycin which was d/cd and replaced with doxycycline. Ucult NGTD. No further episodes since admission. Patient requesting discharge. Will send home on cefuroxime and doxycycline for pneumonia. Advised follow up with cardiology/neurology/ PCP. Patient agreeable to plan and ready for discharge. Discharge Note New Medications: Cefuroxime/doxycycline Follow Up: pcp/neuro/cards Latest Assessment & Plan (1) TIA (transient ischemic attack) Current Visit: Yes Status: Resolved Assessment & Plan: - lipid panel showing LDL at 72 - continue atorvastatin at 80mg daily -Continue ASA/Brinlinta - CT head reviewed showing no acute intracranial abnormalities - Bilateral basal ganglia remote lacunar infarcts - PT/OT - neurology consulted in ED with recs for MRI -MRI brain reviewed with no acute findings.Re-identifies remote bilateral basal ganglial lucunar infarct. - Continue ASA, Brinlinta - PT/OT - tele - talking and eating fine no need for ST at this time -TSH WNL Code(s): G45.9 - TRANSIENT CEREBRAL ISCHEMIC ATTACK, UNSPECIFIED (2) UTI (urinary tract infection) Current Visit: No Status: Acute Assessment & Plan: -Ucult/UA reviewed, no growth on final culture Code(s): N39.0 - URINARY TRACT INFECTION, SITE NOT SPECIFIED (3) Pneumonia Current Visit: Yes Status: Acute Assessment & Plan: -CXR reviewed from 10/11 with haziness is seen in the right lower zone -Procal elevated at 0.127 -Ceftriaxone and azithromycin started initially -reaction to azithromycin - replaced with doxycycline Code(s): J18.9 - PNEUMONIA, UNSPECIFIED ORGANISM (4) Orthostatic dizziness Current Visit: Yes Status: Acute Assessment & Plan: - resolved - orthostats negative Code(s): R42 - DIZZINESS AND GIDDINESS (5) CHF (congestive heart failure) Current Visit: Yes Status: Chronic Assessment & Plan: - UA reviewed - UC NGTD will continue to follow - CBC, CMP reviewed -Cardiology note reviewed, agree with plan Code(s): I50.9 - HEART FAILURE, UNSPECIFIED (6) Lacunar infarction Current Visit: Yes Status: Chronic Assessment & Plan: - CT reviewed as stated above - MRI reviewed, see above -see plan for TIA Code(s): I63.81 - OTHER CEREB INFRC DUE TO OCCLS OR STENOSIS OF SMALL ARTERY (7) Murmur, cardiac Current Visit: Yes Status: Chronic Assessment & Plan: - chronic systolic and diastolic mitral heart murmur as pt has mitral valve stenosis and mitral regurgitation Code(s): R01.1 - CARDIAC MURMUR, UNSPECIFIED (8) Atherosclerosis of coronary artery without angina pectoris Current Visit: Yes Status: Acute Assessment & Plan: -Reviewed cardiac consult note -appreciate recs - S/P PCI one year ago -No current symptoms of angina - Continue home meds aspirin, Brilinta, metoprolol, and high intensity dose of atorvastatin. 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 Barr as scheduled Code(s): I25.10 - ATHSCL HEART DISEASE OF [place] CORONARY ARTERY W/O ANG PCTRS (9) Elevated troponin Current Visit: Yes Status: Acute Assessment & Plan: -Reviewed cardiology note, troponin elevation most likely demand ischemia secondary pneumonia VTE: Brinlita PPI: Protonix Next of Kin: Child- Lisa Gifford D/C plan: tomorrow I spent 35 minutes [id number] with the patient on the day of discharge performing discharge exam, discussing hospital stay and discharge instructions with patient and caregivers, preparation of discharge records, prescriptions & referral forms and addressing any questions/concerns the patient had as documented above. - Vitals & Intake/Output Vital Signs: Vital Signs Temperature 98 F 10/13/24 12:00 Pulse Rate 92 H 10/13/24 12:00 Respiratory Rate 17 10/13/24 12:00 Blood Pressure 150/72 10/13/24 12:00 O2 Sat by Pulse Oximetry 98 10/13/24 12:00 Intake & Output: Intake & Output 10/11/24 10/12/24 10/13/24 10/14/24 11:59 11:59 11:59 11:59 Intake Total 520 958 240 Output Total 200 Balance 320 958 240 Weight 56.6 kg - Lab Result Diagrams: 10/13/24 04:40 10/13/24 04:40 Lab Results-Last 24 Hrs: Lab Results-Last 24 Hours 10/13/24 10/13/24 Range/Units 04:40 04:40 WBC 3.8 L (3.98-10.04) x10^3/uL RBC 3.35 L (3.93-5.22) x10^6/uL Hgb 9.8 L (11.2-15.7) g/dL Hct 29.5 L (34.1-44.9) % MCV 88.1 (79.4-94.8) fL MCH 29.3 (25.6-32.2) pg MCHC 33.2 (32.2-35.5) g/dL RDW 14.1 (11.7-14.4) % Plt Count 155 L (182-369) x10^3/uL MPV 9.8 (9.4-12.3) fL Sodium 137 (135-145) mmol/L Potassium 3.7 (3.5-5.1) mmol/L Chloride 109 H (98-107) mmol/L Carbon Dioxide 25 (22-30) mmol/L Anion Gap 6.9 (5-15) MEQ/L BUN 16 (7-17) mg/dL Creatinine 1.09 H (0.52-1.04) mg/dL Estimated GFR 50.4 ML/MIN Glucose 100 (74-106) mg/dL Calcium 8.3 L (8.4-10.2) mg/dL Total Bilirubin 0.30 (0.2-1.3) mg/dL AST 24 (14-36) U/L ALT 13 (0-35) U/L Alkaline Phosphatase 92 (38-126) U/L Serum Total Protein 5.2 L (6.3-8.2) g/dL Albumin 2.8 L (3.5-5.0) g/dL Micro Results-Entire Visit: Microbiology 10/11/24 16:32 Urine Culture - Final Clean Catch Midstream NO GROWTH - Radiology Exams Ordered Rad Exams-Entire Visit: Radiology Procedures Category Date Time Status CHEST 1 VIEW (PORTABLE) Stat Exams 10/11/24 15:56 Completed HEAD WITHOUT CONTRAST [CT] Stat Exams 10/11/24 15:54 Completed MRI BRAIN W & W/O CONTRAST [MRI] Routine Exams 10/12/24 20:53 Completed - Procedures and Test Procedures and Tests throughout Hospitalization: Therapy Orders & Screens 10/11/24 20:37 PT Eval & Treat (MD Order) ONCE Reason for Eval:: dizziness Diagnosis: TIA 10/11/24 20:53 OT Eval and Treat (MD Order) ROUTINE Comment: Physician Instructions: Reason For Exam: Diagnosis: TIA Discharge Exam General Appearance: no apparent distress Neurologic Exam: alert, oriented x 3, cooperative Eye Exam: PERRL Ears, Nose, Throat Exam: normal ENT inspection Neck Exam: normal inspection Respiratory Exam: normal breath sounds, lungs clear Cardiovascular Exam: regular rate/rhythm, normal heart sounds Gastrointestinal/Abdomen Exam: soft, normal bowel sounds Pelvic Exam: deferred Rectal Exam: deferred Back Exam: normal inspection Extremity Exam: normal inspection Skin Exam: normal color Final Diagnosis/Problem List - Final Discharge Diagnosis/Problem (1) TIA (transient ischemic attack) Current Visit: Yes Status: Resolved Code(s): G45.9 - TRANSIENT CEREBRAL ISCHEMIC ATTACK, UNSPECIFIED (2) UTI (urinary tract infection) Current Visit: No Status: Acute Code(s): N39.0 - URINARY TRACT INFECTION, SITE NOT SPECIFIED (3) Pneumonia Current Visit: Yes Status: Acute Code(s): J18.9 - PNEUMONIA, UNSPECIFIED ORGANISM (4) Orthostatic dizziness Current Visit: Yes Status: Acute Code(s): R42 - DIZZINESS AND GIDDINESS (5) CHF (congestive heart failure) Current Visit: Yes Status: Chronic Code(s): I50.9 - HEART FAILURE, UNSPECIFIED (6) Lacunar infarction Current Visit: Yes Status: Chronic Code(s): I63.81 - OTHER CEREB INFRC DUE TO OCCLS OR STENOSIS OF SMALL ARTERY (7) Murmur, cardiac Current Visit: Yes Status: Chronic Code(s): R01.1 - CARDIAC MURMUR, UNSPECIFIED (8) Atherosclerosis of coronary artery without angina pectoris Current Visit: Yes Status: Acute Code(s): I25.10 - ATHSCL HEART DISEASE OF [place] CORONARY ARTERY W/O ANG PCTRS (9) Elevated troponin Current Visit: Yes Status: Acute Code(s): R79.89 - OTHER SPECIFIED ABNORMAL FINDINGS OF BLOOD CHEMISTRY - Discharge Disposition: Home, Self-Care Condition: Stable Prescriptions: New Atorvastatin Calcium 80 mg PO DAILY 30 Days #30 tablet cefuroxime axetiL [Cefuroxime] 500 mg PO BID 7 Days #14 tablet Doxycycline Hyclate 100 mg [Vibramycin 100 MG] 100 mg PO BID 7 Days #14 tab Continue Aspirin EC 81 mg [Ecotrin 81 mg] 81 mg PO DAILY Zolpidem Tartrate 10 mg [Ambien 10 MG] 10 mg PO HS Ticagrelor [Brilinta] 90 mg PO Q12H Sacubitril/Valsartan [Entresto 24 mg-26 mg Tablet] 1 each PO Q12H Omeprazole 20 mg PO DAILY PRN PRN PRN Reason: heartburn Metoprolol Succinate 50 mg [Toprol Xl 50 MG] 50 mg PO DAILY Gabapentin [Neurontin ] 300 mg PO HS Meclizine HCl 25 mg [Antivert 25 mg] 12.5 mg PO QID PRN PRN 25 Days #100 tablet PRN Reason: Dizziness Discontinued Atorvastatin Calcium [Lipitor 20MG Tablet] 20 mg PO HS Instructions: Stroke - Discharge instructions Additional Instructions: Called [facility] to set up a referral with Dr. Leopoldo Burciaga. Office will call patient with appointment. Their number is [phone] Follow up with: ANNEMARIE ISSA [Primary Care Provider] - 10/20/24 2:15 pm TORIBIO MASON PA [NON-STAFF PHY W/O PRIVILEGES] - 10/25/24 8:45 am ([facility]) Forms: Discharge Instructions
[2024-10-13] MEDS ORDERED: ROCEPHIN 1 GM / 100 ML NaCl 1 GM/100 ML IVPB IV SCH (22:00)
== END 2024-10-13 13:48 | disposition home or self-care (01) ==
LOC: ED 15:53 → MED SURG 20:05
PROVIDERS: ADMIT Internal Medicine; ATTEND Internal Medicine
DX: G45.9 Transient cerebral ischemic attack, unspecified (principal); N39.0 Urinary tract infection, site not specified; J18.9 Pneumonia, unspecified organism; I11.0 Hypertensive heart disease with heart failure; I50.9 Heart failure, unspecified; I63.81 Other cerebral infarction due to occlusion or stenosis of small artery; R01.1 Cardiac murmur, unspecified; I25.10 Atherosclerotic heart disease of native coronary artery without angina pectoris; R79.89 Other specified abnormal findings of blood chemistry; E78.5 Hyperlipidemia, unspecified; I05.0 Rheumatic mitral stenosis; Z79.899 Other long term (current) drug therapy
CPT/HCPCS: 36415; 70450; 70553; 71045; 80048; 80053; 80061; 81001; 82947; 83605; 83721; 83735; 84145; 84443; 84484; 85025; 85027; 85610; 85730; 87086; 96360; 97161; 97165; 99284; Q3014; J0456; J0696; J1200; J2270; J2405; A9270-GY